=== PATIENT | female | born 1970 | race Caucasian/White ===

== ENCOUNTER 2017-09-02 15:55 | Emergency (ER) | payer SELFPAY ==
[2017-09-02 16:50] LABS: Urine Blood TRACE (NEG); Urine Glucose NEGATIVE (NEG); Urine Protein NEGATIVE (NEG); Urine Specific Gravity 1.015 (1.005-1.030)
[2017-09-02] MEDS ORDERED: DIAZEPAM 5 MG TABLET ONE (16:54)
[2017-09-02] MEDS ORDERED: KETOROLAC 30 MG/ML INJ ONE (16:55)
[2017-09-02] MEDS ORDERED: MORPHINE 4 MG/ML SYR ONE (16:55)
--- NOTE | 2017-09-02 18:11 | ER ---
Nurse's Notes [facility] Name: Nicolle Crenshaw Age: 46 yrs Sex: Female : 1970 Arrival Date: 09/02/2017 Time: 15:58 Bed 18 Private MD: None, None Diagnosis: Sprain of ligaments of lumbar spine Presentation: 09/02 15:58 Presenting complaint: Patient states: hx of back pain; at work, i was lifting bucket of hj ice, my back started hurting, both side of my hips, denies fall and trauma; denies numbness and tingling on legs; reports dizziness; denies nausea and vomiting; pain is 8/10;. Transition of care: patient was not received from another setting of care. Onset of symptoms was September 02, 2017. Risk Assessment: Do you want to hurt yourself or someone else? Patient reports no desire to harm self or others. Initial Sepsis Screen: Does the patient meet any 2 criteria? No. Patient's initial sepsis screen is negative. Does the patient have a suspected source of infection? No. Patient's initial sepsis screen is negative. Care prior to arrival: None. 15:58 Method Of Arrival: Ambulatory 15:58 Acuity: BRENDON 4 hj Triage Assessment: 16:02 General: Appears in no apparent distress. uncomfortable, Behavior is calm, cooperative, hj appropriate for age. Pain: Complains of pain in left lower back and right lower back Pain currently is 8 out of 10 on a pain scale. Musculoskeletal: Circulation, motion, and sensation intact. Capillary refill < 3 seconds. 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 - Social history:: Smoking status: Patient uses tobacco products, smokes one-half pack cigarettes per day, 3-4 days, Patient/guardian denies using alcohol. - Ebola Screening: : Patient negative for fever greater than or equal to 101.5 degrees Fahrenheit, and additional compatible Ebola Virus Disease symptoms Patient denies exposure to infectious person Patient denies travel to an Ebola-affected area in the 21 days before illness onset. Screenin:02 Abuse screen: Denies threats or abuse. Denies injuries from another. Nutritional hj screening: No deficits noted. Tuberculosis screening: No symptoms or risk factors identified. Fall Risk None identified. Assessment: 16:14 General: Appears uncomfortable, Behavior is calm, cooperative. Pain: Complains of pain mg2 in right lower back and left lower back Pain radiates to hip Pain currently is 8 out of 10 on a pain scale. Quality of pain is described as aching, pressure, sharp, Pain began 1 day ago. Is intermittent, Aggravated by increased activity, repositioning, weight bearing. Neuro: Level of Consciousness is awake, alert, obeys commands, Oriented to person, place, time, situation. Cardiovascular: Capillary refill < 3 seconds Patient's skin is warm and dry. Respiratory: Airway is patent Respiratory effort is even, unlabored, Respiratory pattern is regular, symmetrical. GI: No signs and/or symptoms were reported involving the gastrointestinal system. : No signs and/or symptoms were reported regarding the genitourinary system. EENT: No signs and/or symptoms were reported regarding the EENT system. Derm: Skin is intact, Skin is pink, warm \T\ dry. normal. Musculoskeletal: Circulation, motion, and sensation intact. Reports pain in right lower back and left lower back since yesterday. Pain is 8 out of 10 on a pain scale. 17:00 Reassessment: Patient appears in no apparent distress at this time. Patient and/or em family updated on plan of care and expected duration. Pain level reassessed. Patient is alert, oriented x 3, equal unlabored respirations, skin warm/dry/pink. 17:45 Reassessment: Patient appears in no apparent distress at this time. Patient and/or em family updated on plan of care and expected duration. Pain level reassessed. Patient is alert, oriented x 3, equal unlabored respirations, skin warm/dry/pink. rates pain 4/10, pt adamant about it not being a pulled muscle, request to speak with provider, ELVIA Hastings notified Patient states feeling better. 18:00 Reassessment: Patient appears in no apparent distress at this time. ELVIA Hastings at bedside em discussing POC. Vital Signs: 16:02 BP 141 / 79; Pulse 75; Resp 18; Temp 98.8(O); Pulse Ox 100% on R/A; Weight 69.4 kg; hj Height 5 ft. 4 in. (162.56 cm); Pain 8/10; 17:00 BP 133 / 80; Pulse 81; Resp 16; Pulse Ox 99% on R/A; Pain 8/10; em 18:00 BP 141 / 90; Pulse 55; Resp 16; Pulse Ox 100% on R/A; Pain 4/10; em 16:02 Body Mass Index 26.26 (69.40 kg, 162.56 cm) hj ED Course: 15:58 Patient arrived in ED. mr 15:58 None, None is Private Physician. mr 16:01 Triage completed. hj 16:02 Arm band placed on right wrist. hj 16:03 Venkata Roa PA is PHCP. [facility] 16:04 Julio Ramires MD is Attending Physician. [facility] 16:05 Patient has correct armband on for positive identification. Placed in gown. Bed in low hj position. Call light in reach. Side rails up X 1. Adult w/ patient. 16:06 Jeffrey Becker LVN is Primary Nurse. em 16:17 Door closed. Warm blanket given. mg2 18:16 No provider procedures requiring assistance completed. Patient did not have IV access em during this emergency room visit. Administered Medications: 17:01 Drug: Ketorolac 30 mg Route: IM; Site: left deltoid; em 18:08 Follow up: Response: No adverse reaction em 17:01 Drug: morphine 4 mg Route: IM; Site: right deltoid; em 18:08 Follow up: Response: No adverse reaction; Pain is decreased em 17:01 Drug: Valium 5 mg Route: PO; em 18:08 Follow up: Response: No adverse reaction; Pain is decreased em Outcome: 18:10 Discharge ordered by . [facility] 18:16 Discharged to home ambulatory. em 18:16 Condition: good 18:16 Discharge instructions given to patient, Instructed on discharge instructions, follow up and referral plans. medication usage, Demonstrated understanding of instructions, follow-up care, medications, Prescriptions given X 4. 18:35 Patient left the ED. iw Signatures: Venkata Roa PA PA jmm Rivera, Maria mr Becker, Jeffrey, LAPIDARIST LAPIDARIST Yana Dailey, RN RN Kasi Sesay, RN RN Melecio Aguila, AMADEO RN mg2
--- NOTE | 2017-09-02 18:11 | EDPHYS ---
Physician Documentation [facility] Name: Nicolle Crenshaw Age: 46 yrs Sex: Female : 1970 Arrival Date: 09/02/2017 Time: 15:58 Bed 18 Private MD: None, None ED Physician Julio Ramires HPI: 09/02 16:36 This 46 yrs old Female presents to ER via Ambulatory with complaints of Back jmm Pain. 16:36 The patient presents with pain that is acute. The symptoms are located in the low back. jmm Onset: The symptoms/episode began/occurred acutely, today. The pain radiates to the left hip and right hip. This is a 46 year old female with no a history of bugling disc that presents to the ED with lower back pain which radiates to her hips bilaterally. The patient denies fever, urinary retention, fecal incontinence. The patient states symptoms began after lifting a bucket of ice while at work. Patient states taking tylenol, motrin, and lidocaine patch with no relief. . 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 - Social history:: Smoking status: Patient uses tobacco products, smokes one-half pack cigarettes per day, 3-4 days, Patient/guardian denies using alcohol. - Ebola Screening: : Patient negative for fever greater than or equal to 101.5 degrees Fahrenheit, and additional compatible Ebola Virus Disease symptoms Patient denies exposure to infectious person Patient denies travel to an Ebola-affected area in the 21 days before illness onset. ROS: 16:36 Constitutional: Negative for fever, chills, and weight loss, Cardiovascular: Negative jmm for chest pain, palpitations, and edema, Respiratory: Negative for shortness of breath, cough, wheezing, and pleuritic chest pain, Abdomen/GI: Negative for abdominal pain, nausea, vomiting, diarrhea, and constipation. 16:36 Back: Positive for 16:36 Back: Positive for pain at rest, pain with movement. 16:36 All other systems are negative. Exam: 16:36 Head/Face: atraumatic. Cardiovascular: Regular rate and rhythm. No edema appreciated [facility] Respiratory: Normal respirations, no respiratory distress appreciated Abdomen/GI: Non distended, soft 16:36 Constitutional: The patient appears alert, awake, uncomfortable. 16:36 Back: no midline tenderness is appreciated, left lower lumbar paraspinal tenderness on palpation, . 16:36 Neuro: Orientation: is normal, Mentation: is normal, Memory: is normal, extension of the great toes appreciated bilaterally.. 16:36 Psych: Behavior/mood is pleasant, cooperative. Vital Signs: 16:02 BP 141 / 79; Pulse 75; Resp 18; Temp 98.8(O); Pulse Ox 100% on R/A; Weight 69.4 kg; hj Height 5 ft. 4 in. (162.56 cm); Pain 8/10; 17:00 BP 133 / 80; Pulse 81; Resp 16; Pulse Ox 99% on R/A; Pain 8/10; em 18:00 BP 141 / 90; Pulse 55; Resp 16; Pulse Ox 100% on R/A; Pain 4/10; em 16:02 Body Mass Index 26.26 (69.40 kg, 162.56 cm) MDM: 16:33 Patient medically screened. [facility] 18:08 Data reviewed: vital signs, nurses notes, lab test result(s). Counseling: I had a [facility] detailed discussion with the patient and/or guardian regarding: the historical points, exam findings, and any diagnostic results supporting the discharge/admit diagnosis, the need for outpatient follow up, to return to the emergency department if symptoms worsen or persist or if there are any questions or concerns that arise at home. 18:08 ED course: patient's symptoms are mildly relieved with analgesics. I do not currently [facility] suspect cauda equina. José given return precautions. Patient understood and agrees with the plan of care. . 09/02 16:44 Order name: Urine Dipstick--Ancillary (enter results); Complete Time: 17:04 ag 09/02 16:44 Order name: Urine --Ancillary (enter results); Complete Time: 17:04 ag Administered Medications: 17:01 Drug: Ketorolac 30 mg Route: IM; Site: left deltoid; em 18:08 Follow up: Response: No adverse reaction em 17:01 Drug: morphine 4 mg Route: IM; Site: right deltoid; em 18:08 Follow up: Response: No adverse reaction; Pain is decreased em 17:01 Drug: Valium 5 mg Route: PO; em 18:08 Follow up: Response: No adverse reaction; Pain is decreased em Disposition: 09/02/17 18:10 Discharged to Home. Impression: Sprain of ligaments of lumbar spine. - Condition is Stable. - Discharge Instructions: Lumbosacral Strain. - Prescriptions for Ibuprofen 800 mg Oral Tablet - take 1 tablet by ORAL route every 8 hours As needed take with food; 30 tablet. Prednisone 20 mg Oral Tablet - take 3 tablet by ORAL route once daily for 5 days; 15 tablet. Tylenol- Codeine #3 300-30 mg Oral Tablet - take 1 tablet by ORAL route every 6 hours As needed; 12 tablet. orphenadrine citrate 100 mg Oral Tablet Sustained Release - take 1 tablet by ORAL route 2 times per day As needed; 20 tablet. - Medication Reconciliation Form, Thank You Letter, Antibiotic Education, Prescription Opioid Use, Work release form form. - Follow up: Private Physician; When: 2 - 3 days; Reason: Continuance of care. Addendum: 09/04/2017 09:22 Co-signature as Attending Physician, Julio Ramires MD I agree with the assessment and c garcia plan of care. Signatures: Dispatcher [employer] Julio Miranda MD MD cha Mickail, Joel, PA PA [facility] Jeffrey Becker, FEED MILL TENDER FEED MILL TENDER em Yana Amador RN Kasi Junior RN RN hj Corrections: (The following items were deleted from the chart) 09/02 18:35 18:10 09/02/2017 18:10 Discharged to Home. Impression: Sprain of ligaments of lumbar iw spine. Condition is Stable. Forms are Work release form, Medication Reconciliation Form, Thank You Letter, Antibiotic Education, Prescription Opioid Use. Follow up: Private Physician; When: 2 - 3 days; Reason: Continuance of care. julio
[2017-09-02 18:39] VITALS: TEMP 98.8
[2017-09-02 18:42] VITALS: BP 141/90; O2SAT 100
== END 2017-09-02 18:35 | disposition home or self-care (01) ==
LOC: ER 15:55
DX: S33.5XXA Sprain of ligaments of lumbar spine, initial encounter (principal); X50.0XXA Overexertion from strenuous movement or load, initial encounter; Y93.89 Activity, other specified; Y92.89 Other specified places as the place of occurrence of the external cause; Y99.8 Other external cause status; Z88.3 Allergy status to other anti-infective agents; F17.210 Nicotine dependence, cigarettes, uncomplicated; F41.9 Anxiety disorder, unspecified; F32.9 Major depressive disorder, single episode, unspecified
CPT/HCPCS: 81003; 81025; 96372; 99283

== ENCOUNTER 2017-10-14 07:28 | Emergency (ER) | payer SELFPAY ==
[2017-10-14] MEDS ORDERED: NA CHLORIDE 0.9% 1,000 ML ONE (08:02)
[2017-10-14] MEDS ORDERED: LORazepam 2 MG/ML VIAL ONE (08:02)
[2017-10-14 08:32] LABS: Absolute Lymphocytes (CBC) 1.9 K/uL (0.7-4.9); Absolute Monocytes 0.4 K/uL (0.1-1.3); Absolute Neutrophil 6.9 K/uL (1.8-8.0); Basophils % 0.4 % (0-1.3); Eosinophils % 0.7 % (0-4.4); Lymphocytes % 20.2 % (15.3-44.8); MCH 30.7 pg (27.0-35.0); MCV 87.9 fL (80-100); MPV 8.5 fL (7.6-11.3); Monocytes % 4.8 % (3.3-12.3); RBC Red Blood Cell Count 5.11 M/uL (3.86-4.86)
[2017-10-14 08:44] LABS: Potassium 3.7 mmol/L (3.5-5.1)
[2017-10-14 08:49] LABS: Barbiturates NEGATIVE (NEGATIVE); Benzodiazepines NEGATIVE (NEGATIVE); Cocaine NEGATIVE (NEGATIVE); METHAMPHETAM NEGATIVE (NEGATIVE); Methadone NEGATIVE (NEGATIVE); Opiates NEGATIVE (NEGATIVE); Phencyclidine NEGATIVE (NEGATIVE); THC Cannibis NEGATIVE (NEGATIVE)
--- NOTE | 2017-10-14 09:01 | RAD REPORT ---
EXAM DESCRIPTION: CT - Head Brain Wo Cont - 10/14/2017 8:49 am CLINICAL HISTORY: Headache and dizziness COMPARISON: None. TECHNIQUE: Computed axial tomography of the head was obtained. IV contrast was not requested. All CT scans are performed using dose optimization technique as appropriate and may include automated exposure control or mA/KV adjustment according to patient size. FINDINGS: An intracranial bleed is not seen . The ventricles are normal in caliber. No extra-axial fluid collection is noted. Fluid within the sinuses/ mastoids is not seen. IMPRESSION: No acute intracranial abnormality is seen. If patient's symptoms persist MRI of the bra in would be recommended.
--- NOTE | 2017-10-14 09:11 | ER ---
Nurse's Notes [facility] Name: Nicolle Crenshaw Age: 46 yrs Sex: Female : 1970 Arrival Date: 10/14/2017 Time: 07:29 Bed 5 Private MD: out of town, doctor Diagnosis: Hyperventilation Presentation: 10/14 07:32 Presenting complaint: Patient states: "I feel shaky and dizzy like I am going to pass aa5 out". pt also c/o frontal headache. Pt reports symptoms began yesterday. 07:32 Transition of care: patient was not received from another setting of care. Onset of aa5 symptoms was September 2017. Risk Assessment: Do you want to hurt yourself or someone else? Patient reports no desire to harm self or others. Initial Sepsis Screen: Does the patient meet any 2 criteria? No. Patient's initial sepsis screen is negative. Does the patient have a suspected source of infection? No. Patient's initial sepsis screen is negative. Care prior to arrival: None. 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 - Social history:: Smoking status: Patient/guardian denies using tobacco. - Ebola Screening: : No symptoms or risks identified at this time. Screenin:39 Abuse screen: Denies threats or abuse. Denies injuries from another. Nutritional jl7 screening: No deficits noted. Tuberculosis screening: No symptoms or risk factors identified. 08:30 Fall Risk IV access (20 points). Total Villarreal Fall Scale indicates No Risk (0-24 pts). jl7 Assessment: 07:39 General: Appears uncomfortable, Behavior is cooperative, anxious. Pain: Complains of jl7 pain in headache Pain currently is 8 out of 10 on a pain scale. Pain began 1 day ago. Neuro: Level of Consciousness is awake, alert, obeys commands, Oriented to person, place, time, situation, Pupils are PERRLA, Reports dizziness, headache since yesterday. Cardiovascular: Heart tones S1 S2 present Patient's skin is warm and dry. Respiratory: Airway is patent Respiratory effort is even, unlabored, Respiratory pattern is regular, symmetrical, Breath sounds are clear bilaterally. GI: Reports nausea, Patient currently denies diarrhea, vomiting. : No signs and/or symptoms were reported regarding the genitourinary system. EENT: No signs and/or symptoms were reported regarding the EENT system. Derm: Skin is pink, warm \\T\\ dry. Musculoskeletal: No signs and/or symptoms reported regarding the musculoskeletal system. 07:50 Reassessment: Pt's body noted to be shaking all over and pt is crying. Instructed pt to jl7 take deep breaths. Pt verbalized understanding but body continues to shake. 08:05 Reassessment: Pt requesting to use the bathroom, informed pt she will have to use a jl7 bedpan for safety reasons, pt verbalized understanding. Pt's body continues to shake. 08:30 Reassessment: While pt is on bedpan pt's body stops shaking. After bedpan is removed jl7 pt's body continues to appear still. Pt states "I'm shaking on the inside now, just not on the outside.". 09:35 Reassessment: Pt sitting in bed, respirations even and unlabored, no signs of distress jl noted at this time. Dr. Black at bedside discussing plan of care. Vital Signs: 07:39 BP 150 / 117; Pulse 88; Resp 20 S; Temp 98.9(O); Pulse Ox 100% on R/A; Weight 68.04 kg jl7 (R); Height 5 ft. 4 in. (162.56 cm) (R); Pain 8/10; 08:33 BP 124 / 84; Pulse 72; Resp 18; Pulse Ox 100% ; jl7 09:30 BP 127 / 81; Pulse 61; Resp 16; Pulse Ox 100% ; jl7 07:39 Body Mass Index 25.75 (68.04 kg, 162.56 cm) jl7 ED Course: 07:29 Patient arrived in ED. mr 07:29 out of town, doctor is Private Physician. mr 07:32 Arm band placed on Patient placed in an exam room, on a stretcher. aa5 07:33 Jeffries, Jahala, RN is Primary Nurse. jl7 07:33 Ray Black MD is Attending Physician. gs 07:37 Triage completed. aa5 08:27 EKG done, by ED staff, reviewed by Ray Black MD. jb1 08:30 Patient has correct armband on for positive identification. Placed in gown. Bed in low jl7 position. Call light in reach. Side rails up X 1. rn medical surgical on. Pulse ox on. NIBP on. Warm blanket given. 08:30 Initial lab(s) drawn, by me, sent to lab. Urine collected: clean catch specimen, clear. jl7 Inserted saline lock: 22 gauge in right antecubital area, using aseptic technique. Blood collected. 08:49 CT Head Brain wo Cont In Process Unspecified. EDMS 08:49 CT completed. Patient moved to CT via stretcher. Patient moved back from CT. cw1 09:30 No provider procedures requiring assistance completed. IV discontinued, intact, jl7 bleeding controlled, No redness/swelling at site. Pressure dressing applied. Administered Medications: 07:59 Drug: NS 0.9% 1000 ml Route: IV; Rate: 1 bolus; Site: right antecubital; jl7 09:00 Follow up: IV Status: Completed infusion jl7 08:00 Drug: Ativan 1 mg Route: IVP; Site: right antecubital; jl7 08:30 Follow up: Response: No adverse reaction; Marked relief of symptoms jl7 09:47 Not Given (Other Intervention Used): Ativan 1 mg IVP once jl7 Outcome: 09:11 Discharge ordered by . 09:45 Discharged to home ambulatory, with family. jl7 09:45 Condition: stable 09:45 Discharge instructions given to patient, family, Instructed on discharge instructions, follow up and referral plans. Demonstrated understanding of instructions, follow-up care. 09:48 Patient left the ED. jl7 Signatures: Dispatcher [employer] EDMS Dax Woodard jb1 La Padilla Audri, RN RN aa5 Woodley, Crystal cw1 Trent Jeffries RN RN jl7 Ray Black MD MD
--- NOTE | 2017-10-14 09:12 | EDPHYS ---
Physician Documentation [facility] Name: Nicolle Crenshaw Age: 46 yrs Sex: Female : 1970 Arrival Date: 10/14/2017 Time: 07:29 Bed 5 Private MD: out of town, doctor ED Physician Ray Black HPI: 10/14 09:09 This 46 yrs old Female presents to ER via Wheelchair with complaints of gs Shaking. 09:09 The patient presents to the emergency department with breathing fast shaking anxious. gs Onset: The symptoms/episode began/occurred yesterday. Associated signs and symptoms: Pertinent positives; headache, Pertinent negatives: abdominal pain. Severity of symptoms: At their worst the symptoms were severe in the emergency department the symptoms are unchanged. The patient has experienced similar episodes in the past, a few times, headache is new. 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 - Social history:: Smoking status: Patient/guardian denies using tobacco. - Ebola Screening: : No symptoms or risks identified at this time. ROS: 09:09 All other systems are negative. gs Exam: 09:09 Head/Face: Normocephalic, atraumatic. Eyes: Pupils equal round and reactive to light, gs extra-ocular motions intact. Lids and lashes normal. Conjunctiva and sclera are non-icteric and not injected. Cornea within normal limits. Periorbital areas with no swelling, redness, or edema. ENT: Nares patent. No nasal discharge, no septal abnormalities noted. Tympanic membranes are normal and external auditory canals are clear. Oropharynx with no redness, swelling, or masses, exudates, or evidence of obstruction, uvula midline. Mucous membranes moist. Neck: Trachea midline, no thyromegaly or masses palpated, and no cervical lymphadenopathy. Supple, full range of motion without nuchal rigidity, or vertebral point tenderness. No Meningismus. Chest/axilla: Normal chest wall appearance and motion. Nontender with no deformity. No lesions are appreciated. Cardiovascular: Regular rate and rhythm with a normal S1 and S2. No gallops, murmurs, or rubs. Normal PMI, no JVD. No pulse deficits. Respiratory: Lungs have equal breath sounds bilaterally, clear to auscultation and percussion. No rales, rhonchi or wheezes noted. No increased work of breathing, no retractions or nasal flaring. Abdomen/GI: Soft, non-tender, with normal bowel sounds. No distension or tympany. No guarding or rebound. No evidence of tenderness throughout. Back: No spinal tenderness. No costovertebral tenderness. Full range of motion. Skin: Warm, dry with normal turgor. Normal color with no rashes, no lesions, and no evidence of cellulitis. MS/ Extremity: Pulses equal, no cyanosis. Neurovascular intact. Full, normal range of motion. Neuro: Awake and alert, GCS 15, oriented to person, place, time, and situation. Cranial nerves II-XII grossly intact. Motor strength 5/5 in all extremities. Sensory grossly intact. Cerebellar exam normal. Normal gait. 09:09 Constitutional: The patient appears alert, awake, anxious. 09:09 Psych: Behavior/mood is anxious, voluntary shaking can terminate with distraction. 09:13 ECG was reviewed by the Attending Physician. Vital Signs: 07:39 BP 150 / 117; Pulse 88; Resp 20 S; Temp 98.9(O); Pulse Ox 100% on R/A; Weight 68.04 kg 7 (R); Height 5 ft. 4 in. (162.56 cm) (R); Pain 8/10; 08:33 BP 124 / 84; Pulse 72; Resp 18; Pulse Ox 100% ; jl7 09:30 BP 127 / 81; Pulse 61; Resp 16; Pulse Ox 100% ; jl7 07:39 Body Mass Index 25.75 (68.04 kg, 162.56 cm) 7 MDM: 07:43 Patient medically screened. 09:09 Data reviewed: vital signs, nurses notes. Response to treatment: the patient's symptoms gs have resolved after treatment, and as a result, I will discharge patient. 09:12 Differential diagnosis: acute psychotic break, drug withdrawl. ED course: most likely gs cause hypoglycemia is pt states she hasn't been eating well. 10/14 07:44 Order name: CBC with Diff; Complete Time: 09:04 10/14 07:44 Order name: Basic Metabolic Panel; Complete Time: 09:04 10/14 07:44 Order name: Urine Drug Screen; Complete Time: 09:04 10/14 07:44 Order name: CT Head Brain wo Cont; Complete Time: 09:04 10/14 07:44 Order name: CPK; Complete Time: 09:04 10/14 08:30 Order name: Urine Dipstick--Ancillary (enter results) 10/14 09:05 Order name: Diet Regular; Complete Time: 09:05 EC:13 Rate is 89 beats/min. Rhythm is regular. QT interval is normal. T waves are Normal. Clinical impression: Normal ECG. Interpreted by me. Administered Medications: 07:59 Drug: NS 0.9% 1000 ml Route: IV; Rate: 1 bolus; Site: right antecubital; 7 09:00 Follow up: IV Status: Completed infusion jl7 08:00 Drug: Ativan 1 mg Route: IVP; Site: right antecubital; [facility] 08:30 Follow up: Response: No adverse reaction; Marked relief of symptoms jl7 09:47 Not Given (Other Intervention Used): Ativan 1 mg IVP once jl7 Disposition: 10/14/17 09:11 Discharged to Home. Impression: Hyperventilation. - Condition is Stable. - Discharge Instructions: Hyperventilation. - Medication Reconciliation Form, Thank You Letter, Antibiotic Education, Prescription Opioid Use form. - Follow up: Private Physician; When: 2 - 3 days; Reason: Re-evaluation by your physician. Signatures: Dispatcher [employer] [facility] Tona Lucio RN RN aa5 Trent Jeffries RN RN jl7 Ray Black MD MD Corrections: (The following items were deleted from the chart) 09:48 09:11 10/14/2017 09:11 Discharged to Home. Impression: Hyperventilation. Condition is jl7 Stable. Forms are Medication Reconciliation Form, Thank You Letter, Antibiotic Education, Prescription Opioid Use. Follow up: Private Physician; When: 2 - 3 days; Reason: Re-evaluation by your physician.
[2017-10-14 09:58] LABS: Urine Blood NEGATIVE (NEG); Urine Glucose NEGATIVE (NEG); Urine Protein NEGATIVE (NEG)
[2017-10-14 10:00] VITALS: O2SAT 100
[2017-10-14 10:01] VITALS: TEMP 98.9
[2017-10-14 10:02] VITALS: BP 127/81
--- NOTE | 2017-10-16 07:53 | EKG ---
Test Date: 2017-10-14 Test Time: 07:36:57 Manager Of Exhibitions And Collections: JENNI MEASUREMENT RESULTS: Intervals: Rate: 89 MI: 112 QRSD: 64 QT: 346 QTc: 420 [place]: P: 54 MI: 112 QRS: 13 T: 46 INTERPRETIVE STATEMENTS: Normal sinus rhythm Normal ECG Compared to ECG 01/10/2016 19:12:25 No significant changes Electronically Signed On 10-16-17 07:51:40 CDT by Josef Bergman
== END 2017-10-14 09:48 | disposition home or self-care (01) ==
LOC: ER 07:28
DX: R06.4 Hyperventilation (principal); Z88.1 Allergy status to other antibiotic agents; F41.9 Anxiety disorder, unspecified
CPT/HCPCS: 36415; 70450; 80048; 80307; 81003; 82550; 82962; 85025; 93005; 96361; 96374; 99285; J7030

== ENCOUNTER 2018-03-17 12:19 | Emergency (ER) | payer SELFPAY ==
[2018-03-17] MEDS ORDERED: PANTOPRAZOLE 40 MG INJ ONE (13:08)
[2018-03-17 13:49] LABS: Absolute Lymphocytes (CBC) 1.9 K/uL (0.7-4.9); Absolute Monocytes 0.3 K/uL (0.1-1.3); Absolute Neutrophil 2.7 K/uL (1.8-8.0); Basophils % 0.5 % (0-1.3); Eosinophils % 2.1 % (0-4.4); Hematocrit 41.7 % (36.0-45.0); Lymphocytes % 37.6 % (15.3-44.8); MPV 9.2 fL (7.6-11.3); Monocytes % 6.1 % (3.3-12.3); RBC Red Blood Cell Count 4.68 M/uL (3.86-4.86)
[2018-03-17 14:08] LABS: ALT/SGPT 26 U/L (12-78); AST/SGOT 13 U/L (15-37); Albumin 4.2 g/dL (3.4-5.0); Alkaline Phosphatase 49 U/L (45-117); BUN Blood Urea Nitrogen 6 mg/dL (7-18); Bicarbonate 31 mmol/L (21-32); Bilirubin Direct 0.2 mg/dL (0-0.2); Bilirubin Total 0.5 mg/dL (0.2-1.0); Glucose Level 79 mg/dL (74-106); Lipase 125 U/L (73-393); Potassium 3.9 mmol/L (3.5-5.1); Protein, Total 7.5 g/dL (6.4-8.2); Sodium Level 141 mmol/L (136-145); Troponin I < 0.02 ng/mL (0.0-0.045)
--- NOTE | 2018-03-17 14:16 | RAD REPORT ---
EXAM DESCRIPTION: US - Abdomen Exam Limited - 03/17/2018 2:04 pm CLINICAL HISTORY: Abdominal pain. COMPARISON: None. FINDINGS: Several gallstones are present measuring up to 15 millimeters. The gallbladder wall is upp er limits normal thickness The biliary tree is normal caliber. IMPRESSION: Cholelithiasis
[2018-03-17 14:34] LABS: Urine Blood NEGATIVE (NEG); Urine Glucose NEGATIVE (NEG); Urine Protein NEGATIVE (NEG)
--- NOTE | 2018-03-17 14:37 | EDPHYS ---
Physician Documentation [facility] Name: Nicolle Crenshaw Age: 47 yrs Sex: Female : 1970 Arrival Date: 03/17/2018 Time: 12:23 Bed 23 Private MD: None, None ED Physician Julio Ramires HPI: 03/17 13:01 This 47 yrs old Female presents to ER via Ambulatory with complaints of cp Abdominal Pain. 13:01 The patient presents with abdominal pain in the epigastric area. Onset: The cp symptoms/episode began/occurred 1 week(s) ago. The symptoms do not radiate. Associated signs and symptoms: Pertinent positives: nausea, Pertinent negatives: anorexia, blood in stools, constipation, fever, vomiting. The symptoms are described as waxing/waning. Modifying factors: The symptoms are alleviated by food. 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 - Social history:: Smoking status: Patient uses tobacco products, smokes one-half pack cigarettes per day. - Ebola Screening: : No symptoms or risks identified at this time. ROS: 13:05 Constitutional: Negative for body aches, chills, fever, poor PO intake, weight loss. cp 13:05 Eyes: Negative for injury, pain, redness, and discharge. cp 13:05 ENT: Negative for drainage from ear(s), ear pain, sore throat, difficulty swallowing, difficulty handling secretions. 13:05 Cardiovascular: Negative for edema, palpitations. 13:05 Respiratory: Negative for cough, shortness of breath, wheezing. 13:05 Abdomen/GI: Positive for abdominal pain, nausea, of the epigastric area, Negative for vomiting, diarrhea, constipation, anorexia, dysphagia. 13:05 Back: Negative for radiated pain. 13:05 Skin: Negative for cellulitis, rash. 13:05 All other systems are negative. Exam: 13:10 Constitutional: The patient appears in no acute distress, alert, awake, cp non-diaphoretic, non-toxic, well developed, well nourished. 13:10 Head/Face: Normocephalic, atraumatic. cp 13:10 Eyes: Periorbital structures: appear normal, Conjunctiva: normal, no exudate, no injection, Sclera: no appreciated abnormality, Lids and lashes: appear normal, bilaterally. 13:10 ENT: External ear(s): are unremarkable, Nose: is normal, Mouth: Lips: moist, Oral mucosa: pink and intact, moist, Posterior pharynx: is normal, airway is patent, no erythema, no exudate. 13:10 Chest/axilla: Inspection: normal, Palpation: is normal, no crepitus, no tenderness. 13:10 Cardiovascular: Rate: normal, Rhythm: regular. 13:10 Respiratory: the patient does not display signs of respiratory distress, Respirations: normal, no use of accessory muscles, no retractions, no splinting, no tachypnea, labored breathing, is not present, Breath sounds: are clear throughout, no decreased breath sounds, no stridor, no wheezing. 13:10 Abdomen/GI: Inspection: abdomen appears normal, Bowel sounds: active, all quadrants, Palpation: soft, in all quadrants, moderate abdominal tenderness, in the epigastric area, rebound tenderness, is not appreciated, voluntary guarding, is not appreciated, involuntary guarding, is not appreciated. 13:10 Back: pain, is absent, ROM is normal. 13:10 Skin: cellulitis, is not appreciated, no rash present. 14:24 ECG was reviewed by the Attending Physician. Vital Signs: 12:28 BP 126 / 51; Pulse 64; Resp 18; Temp 97.8; Pulse Ox 98% on R/A; Weight 72.57 kg; Height la1 5 ft. 4 in. (162.56 cm); 15:06 BP 122 / 60; Pulse 66; Resp 18; Pulse Ox 100% on R/A; Pain 0/10; mg2 12:28 Body Mass Index 27.46 (72.57 kg, 162.56 cm) la1 MDM: 12:33 Patient medically screened. [facility] 14:27 Data reviewed: vital signs, nurses notes, lab test result(s), EKG, radiologic studies, cp ultrasound, and as a result, I will discharge patient. 03/17 12:55 Order name: Basic Metabolic Panel 03/17 12:55 Order name: CBC with Diff 03/17 12:55 Order name: Creatinine for Radiology 03/17 12:55 Order name: Hepatic Function 03/17 12:55 Order name: Lipase 03/17 12:55 Order name: Troponin I 03/17 13:03 Order name: Urine Dipstick--Ancillary (enter results) 03/17 13:03 Order name: Urine --Ancillary (enter results) 03/17 13:51 Order name: CBC with Automated Diff; Complete Time: 14:09 EDNV 03/17 14:09 Interpretation: Reviewed. 03/17 14:00 Order name: Creatinine (Radiology Only); Complete Time: 14:09 EDNV 03/17 14:08 Order name: Basic Metabolic Panel; Complete Time: 14:09 EDNV 03/17 14:09 Interpretation: Normal except: BUN 6; GFR 81. 03/17 14:08 Order name: Liver (Hepatic) Function; Complete Time: 14:09 EDNV 03/17 14:09 Interpretation: Normal except: AST 13. 03/17 14:08 Order name: Troponin I; Complete Time: 14:09 EDNV 03/17 14:10 Interpretation: Reviewed. 03/17 14:08 Order name: Lipase; Complete Time: 14:09 EDNV 03/17 14:09 Interpretation: Reviewed. 03/17 12:55 Order name: IV Saline Lock; Complete Time: 15:06 03/17 12:55 Order name: Labs collected and sent; Complete Time: 15:06 03/17 12:55 Order name: Urine Dipstick-Ancillary (obtain specimen); Complete Time: 12:58 03/17 12:55 Order name: Urine Test (obtain specimen); Complete Time: 12:58 03/17 12:55 Order name: EKG; Complete Time: 12:55 03/17 12:55 Order name: EKG - Nurse/Tech; Complete Time: 15:06 03/17 12:55 Order name: US Abdomen Limited 03/17 12:55 Order name: XRAY Chest (1 view) 03/17 12:55 Order name: NPO; Complete Time: 12:55 03/17 14:17 Order name: US; Complete Time: 14:20 EDNV 03/17 14:21 Interpretation: Report reviewed. cp 03/17 14:35 Order name: Urine --Ancillary EDMS 03/17 14:35 Order name: Urine Dipstick-Ancillary EDMS 03/17 15:01 Order name: [employer] EDNV EC:24 Rate is 55 beats/min. Rhythm is regular. [place] interval is normal. QRS interval is normal. cp QT interval is normal. Interpreted by me. Reviewed by me. Administered Medications: 13:18 Drug: ProTONIX 40 mg Route: IVP; Infused Over: 2 mins; Site: right antecubital; tl3 15:05 Follow up: Response: No adverse reaction; Marked relief of symptoms mg2 Disposition: 03/17/18 14:36 Discharged to Home. Impression: Cholelithiasis. - Condition is Stable. - Discharge Instructions: Biliary Colic, Adult, Cholelithiasis. - Prescriptions for Bentyl 20 mg Oral Tablet - take 2 tablet by ORAL route every 6 hours As needed; 40 tablet. Zofran 4 mg Oral Tablet - take 1 tablet by ORAL route every 12 hours As needed; 20 tablet. - Medication Reconciliation Form, Thank You Letter, Antibiotic Education, Prescription Opioid Use form. - Follow up: Mariano Stephen MD; When: 1 - 2 days; Reason: Recheck today's complaints. - Problem is new. - Symptoms have improved. Addendum: 03/19/2018 07:47 Co-signature as Attending Physician, uJlio Ramires MD I agree with the assessment and c garcia plan of care. Signatures: Dispatcher [employer] [facility] Julio Ramires MD MD cha Attema, Lee RN RN la1 Julio Delgadillo PA PA cp Adelita Rob, RN RN tl3 Melecio Aguila RN RN mg2 Corrections: (The following items were deleted from the chart) 03/17 13:02 13:01 Constitutional: Negative for cp cp 15:08 14:36 03/17/2018 14:36 Discharged to Home. Impression: Cholelithiasis. Condition is mg2 Stable. Forms are Medication Reconciliation Form, Thank You Letter, Antibiotic Education, Prescription Opioid Use. Follow up: Mariano Stpehen; When: 1 - 2 days; Reason: Recheck today's complaints. Problem is new. Symptoms have improved. cp
--- NOTE | 2018-03-17 14:37 | ER ---
Nurse's Notes [facility] Name: Nicolle Crenshaw Age: 47 yrs Sex: Female : 1970 Arrival Date: 03/17/2018 Time: 12:23 Bed 23 Private MD: None, None Diagnosis: Cholelithiasis Presentation: 03/17 12:27 Presenting complaint: Patient states: Upper abdominal pain for about a week, persistent la1 nausea. Transition of care: patient was not received from another setting of care. Onset of symptoms was March 17, 2018. Risk Assessment: Do you want to hurt yourself or someone else? Patient reports no desire to harm self or others. Initial Sepsis Screen: Does the patient meet any 2 criteria? No. Patient's initial sepsis screen is negative. Does the patient have a suspected source of infection? No. Patient's initial sepsis screen is negative. Care prior to arrival: None. 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 - Social history:: Smoking status: Patient uses tobacco products, smokes one-half pack cigarettes per day. - Ebola Screening: : No symptoms or risks identified at this time. Screenin:15 Abuse screen: Denies threats or abuse. Nutritional screening: No deficits noted. tl3 Tuberculosis screening: No symptoms or risk factors identified. Fall Risk None identified. Assessment: 13:15 General: Appears uncomfortable, slender, well groomed, well developed, well nourished, tl3 Behavior is cooperative, appropriate for age, anxious. Pain: Complains of pain in epigastric area, right upper quadrant and left upper quadrant. Neuro: Level of Consciousness is awake, alert, obeys commands, Oriented to person, place, time, situation, Appropriate for age. Cardiovascular: Patient's skin is warm and dry. Respiratory: Airway is patent Respiratory effort is even, unlabored, Respiratory pattern is regular, symmetrical. GI: Abdomen is round Bowel sounds present X 4 quads. Abd is soft Abdomen is tender to palpation in epigastric area, right upper quadrant and left upper quadrant abdominal pain that has lasted for about a week, gets somewhat better after eating, states that she has been nauseated but no vomiting, normal BM Reports. : No signs and/or symptoms were reported regarding the genitourinary system. EENT: No signs and/or symptoms were reported regarding the EENT system. Derm: No signs and/or symptoms reported regarding the dermatologic system. Vital Signs: 12:28 BP 126 / 51; Pulse 64; Resp 18; Temp 97.8; Pulse Ox 98% on R/A; Weight 72.57 kg; Height la1 5 ft. 4 in. (162.56 cm); 15:06 BP 122 / 60; Pulse 66; Resp 18; Pulse Ox 100% on R/A; Pain 0/10; mg2 12:28 Body Mass Index 27.46 (72.57 kg, 162.56 cm) la1 ED Course: 12:23 Patient arrived in ED. mr 12:23 None, None is Private Physician. mr 12:28 Triage completed. la1 12:29 Arm band placed on left wrist. la1 12:33 Julio Delgadillo PA is PHCP. cp 12:33 Julio Ramires MD is Attending Physician. cp 12:35 Urine collected: clean catch specimen, clear, rosario colored, Amount Voided: 80mL. jp3 12:40 Bed in low position. Call light in reach. Side rails up X 1. Warm blanket given. Pillow jp3 given. 12:40 Pulse ox on. NIBP on. jp3 12:54 Adelita Rob, RN is Primary Nurse. tl3 13:15 No provider procedures requiring assistance completed. Initial lab(s) drawn, by me, tl3 sent to lab. ultrasound done at bedside. Inserted saline lock: 20 gauge in right antecubital area, using aseptic technique. Blood collected. 13:26 Ultrasound completed. Patient tolerated well. sg3 13:26 Notified ED Physician kristian. sg3 14:27 X-ray(s) taken. tl3 14:35 Mariano Stephen MD is Referral Physician. cp 14:55 IV discontinued, intact, bleeding controlled, No redness/swelling at site. Pressure jp3 dressing applied. Administered Medications: 13:18 Drug: ProTONIX 40 mg Route: IVP; Infused Over: 2 mins; Site: right antecubital; tl3 15:05 Follow up: Response: No adverse reaction; Marked relief of symptoms mg2 Outcome: 14:36 Discharge ordered by . albina 15:07 Discharged to home ambulatory. mg2 15:07 Condition: stable 15:07 Discharge instructions given to patient, Instructed on discharge instructions, follow up and referral plans. medication usage, Demonstrated understanding of instructions, follow-up care, medications, Prescriptions given X 2. 15:08 Patient left the ED. mg2 Signatures: Connie Padilla Lee, RN RN la1 Julio Delgadillo PA PA cp Godinez, Sarah 3 Adelita Rob, AMADEO RN tl3 Melecio Aguila RN RN mg2 Ward Prabhakar jp3
--- NOTE | 2018-03-17 15:00 | RAD REPORT ---
EXAM DESCRIPTION: Emma Single View03/17/2018 2:48 pm CLINICAL HISTORY: abd pain COMPARISON: 2016 FINDINGS: The lungs appear clear of acute infiltrate. The heart is normal size IMPRESSION: No acute abnormalities displayed
[2018-03-17 16:02] VITALS: TEMP 97.8
[2018-03-17 16:05] VITALS: BP 122/60; O2SAT 100
--- NOTE | 2018-03-18 11:24 | EKG ---
Test Date: 2018-03-17 Test Time: 14:18:57 Broaching Machine Repairer: VERONICA MEASUREMENT RESULTS: Intervals: Rate: 55 WV: 158 QRSD: 66 QT: 424 QTc: 405 [place]: P: 75 WV: 158 QRS: 16 T: 37 INTERPRETIVE STATEMENTS: Sinus bradycardia Possible Left atrial enlargement Borderline ECG Compared to ECG 10/14/2017 07:36:57 Sinus rhythm no longer present Electronically Signed On 03-18-18 11:23:39 SUPERVISOR MENDING by Eduardo Ruelas
== END 2018-03-17 15:08 | disposition home or self-care (01) ==
LOC: ER 12:19
DX: K80.20 Calculus of gallbladder without cholecystitis without obstruction (principal); Z88.3 Allergy status to other anti-infective agents; F41.8 Other specified anxiety disorders; F43.10 Post-traumatic stress disorder, unspecified; Z72.0 Tobacco use; F17.210 Nicotine dependence, cigarettes, uncomplicated
CPT/HCPCS: 36415; 71045; 76705; 80048; 80076; 81003; 81025; 83690; 84484; 85025; 93005; C9113

== ENCOUNTER 2018-04-07 12:58 | Emergency (ER) | payer SELFPAY ==
--- OUTSIDE RECORDS SUMMARY | 2018-04-07 13:01 | XMS REPORT ---
:1970 [facility] [address] [place] [address] [address] [place] [address] Care Team Providers Name Role Phone Unavailable Unavailable Unavailable Problems This patient has no known problems. Allergies, Adverse Reactions, Alerts This patient has no known allergies or adverse reactions. Medications This patient has no known medications.
[2018-04-07] MEDS ORDERED: ONDANSETRON 4 MG/2 ML VIAL ONE (13:53)
[2018-04-07] MEDS ORDERED: KETOROLAC 30 MG/ML INJ ONE (13:53)
[2018-04-07 14:13] LABS: Absolute Lymphocytes (CBC) 1.8 K/uL (0.7-4.9); Absolute Monocytes 0.4 K/uL (0.1-1.3); Absolute Neutrophil 4.3 K/uL (1.8-8.0); Basophils % 0.7 % (0-1.3); Eosinophils % 2.4 % (0-4.4); Lymphocytes % 27.1 % (15.3-44.8); MPV 9.3 fL (7.6-11.3); Monocytes % 5.4 % (3.3-12.3); RBC Red Blood Cell Count 4.87 M/uL (3.86-4.86)
[2018-04-07 14:14] LABS: Albumin 4.4 g/dL (3.4-5.0); Bilirubin Direct 0.1 mg/dL (0-0.2); Bilirubin Total 0.6 mg/dL (0.2-1.0); Potassium 3.7 mmol/L (3.5-5.1); Protein, Total 7.5 g/dL (6.4-8.2)
[2018-04-07 14:24] LABS: Urine Blood TRACE (NEG); Urine Glucose NEGATIVE (NEG); Urine Protein NEGATIVE (NEG); Urine pH 6.5 (5.0-7.0)
--- NOTE | 2018-04-07 15:19 | EDPHYS ---
Physician Documentation [facility] Name: Nicolle Crenshaw Age: 47 yrs Sex: Female : 1970 Arrival Date: 04/07/2018 Time: 13:00 Bed 26 Private MD: None, None; out of town, doctor ED Physician Marcus Lobo HPI: 04/07 14:00 This 47 yrs old Female presents to ER via Wheelchair with complaints of Back pm1 Pain. 14:00 The patient presents with pain that is acute. The symptoms are located in the low back. pm1 Onset: The symptoms/episode began/occurred yesterday. The pain radiates to the left leg. Associated signs and symptoms: Pertinent negatives: fever, numbness, tingling. The problem was sustained when lifting furniture. Modifying factors: The patient symptoms are alleviated by remaining still, the patient symptoms are aggravated by movement. Severity of symptoms: in the emergency department the symptoms are actually worse. The patient has experienced similar episodes in the past, several times. The patient has not recently seen a physician. Patient was lifting and moving heavy furniture yesterday. Reports history of herniated discs. Patient presenting to ER for her acute back pain but reports that she also has some upper abdominal pain today that was evaluated on 03/27/18 and she was diagnosed with cholelithiasis. Historical: - Allergies: 13:05 Levofloxacin; la1 - PMHx: 13:05 Anxiety; Back pain; Depression; PTSD; la1 - PSHx: 13:05 ; la1 - Immunization history:: Adult Immunizations up to date. - Social history:: Smoking status: Patient uses tobacco products, smokes one-half pack cigarettes per day. - Ebola Screening: : No symptoms or risks identified at this time. ROS: 14:00 Constitutional: Negative for fever, chills, and weight loss, Eyes: Negative for injury, pm1 pain, redness, and discharge, ENT: Negative for injury, pain, and discharge, Neck: Negative for injury, pain, and swelling, Cardiovascular: Negative for chest pain, palpitations, and edema, Respiratory: Negative for shortness of breath, cough, wheezing, and pleuritic chest pain. 14:00 : Negative for injury, bleeding, discharge, and swelling, MS/Extremity: Negative for injury and deformity, Skin: Negative for injury, rash, and discoloration, Neuro: Negative for headache, weakness, numbness, tingling, and seizure. 14:00 Abdomen/GI: Positive for abdominal pain, nausea, of the right upper quadrant and left upper quadrant, Negative for vomiting, diarrhea, constipation. 14:00 Back: Positive for of the low back area, pain. Exam: 14:00 Constitutional: This is a well developed, well nourished patient who is awake, alert, pm1 and in no acute distress. Head/Face: Normocephalic, atraumatic. Eyes: Pupils equal round and reactive to light, extra-ocular motions intact. Lids and lashes normal. Conjunctiva and sclera are non-icteric and not injected. Cornea within normal limits. Periorbital areas with no swelling, redness, or edema. ENT: Nares patent. No nasal discharge, no septal abnormalities noted. Tympanic membranes are normal and external auditory canals are clear. Oropharynx with no redness, swelling, or masses, exudates, or evidence of obstruction, uvula midline. Mucous membranes moist. Neck: Trachea midline, no thyromegaly or masses palpated, and no cervical lymphadenopathy. Supple, full range of motion without nuchal rigidity, or vertebral point tenderness. No Meningismus. Chest/axilla: Normal chest wall appearance and motion. Nontender with no deformity. No lesions are appreciated. Cardiovascular: Regular rate and rhythm with a normal S1 and S2. No gallops, murmurs, or rubs. Normal PMI, no JVD. No pulse deficits. Respiratory: Lungs have equal breath sounds bilaterally, clear to auscultation and percussion. No rales, rhonchi or wheezes noted. No increased work of breathing, no retractions or nasal flaring. Abdomen/GI: Soft, non-tender, with normal bowel sounds. No distension or tympany. No guarding or rebound. No evidence of tenderness throughout. 14:00 Skin: Warm, dry with normal turgor. Normal color with no rashes, no lesions, and no evidence of cellulitis. MS/ Extremity: Pulses equal, no cyanosis. Neurovascular intact. Full, normal range of motion. 14:00 Back: normal spinal alignment noted, vertebral tenderness, is not appreciated, muscle spasm, is appreciated in the left low back. 14:00 Neuro: Orientation: is normal, Mentation: is normal, Motor: is normal, moves all fours, Gait: is steady, at a normal pace, without difficulty. Vital Signs: 13:08 BP 121 / 86; Pulse 68; Resp 18; Temp 98.5; Pulse Ox 98% on R/A; Weight 72.57 kg; Height la1 5 ft. 4 in. (162.56 cm); 14:15 BP 119 / 74; Pulse 62; Resp 18; Pulse Ox 100% on R/A; aj1 15:53 BP 104 / 87; Pulse 65; Resp 16; Pulse Ox 100% on R/A; aj1 16:32 BP 123 / 81; Pulse 50; Resp 16; Pulse Ox 100% on R/A; aj1 13:08 Body Mass Index 27.46 (72.57 kg, 162.56 cm) la1 MDM: 13:13 Patient medically screened. pm1 14:51 Data reviewed: vital signs. Data interpreted: Pulse oximetry: on room air is 100 %. pm1 Interpretation: normal. 15:16 ED course: Patient reports abdominal pain resolved with Toradol and nausea resolved pm1 with Zofran. She would like something for her lower back pain. Will give patient morphine for improved pain control and discharge to home with tramadol. 15:16 Counseling: I had a detailed discussion with the patient and/or guardian regarding: the pm1 historical points, exam findings, and any diagnostic results supporting the discharge/admit diagnosis, lab results, the need for outpatient follow up, to return to the emergency department if symptoms worsen or persist or if there are any questions or concerns that arise at home. 04/07 13:23 Order name: Basic Metabolic Panel; Complete Time: 14:34 pm1 04/07 13:23 Order name: CBC with Diff; Complete Time: 14:34 pm1 04/07 13:23 Order name: Hepatic Function; Complete Time: 14:34 pm1 04/07 13:23 Order name: Lipase; Complete Time: 14:34 pm1 04/07 14:17 Order name: Urine Dipstick--Ancillary (enter results); Complete Time: 14:34 eb 04/07 14:17 Order name: Urine --Ancillary (enter results); Complete Time: 14:34 eb 04/07 13:23 Order name: IV Saline Lock; Complete Time: 14:09 pm1 04/07 13:23 Order name: Labs collected and sent; Complete Time: 14:09 pm1 Administered Medications: 14:09 Drug: Zofran 4 mg Route: IVP; Site: left antecubital; aj1 15:37 Follow up: Response: No adverse reaction aj1 14:09 Drug: TORadol 30 mg Route: IVP; Site: left antecubital; aj1 15:37 Follow up: Response: No adverse reaction aj1 15:25 Drug: morphine 4 mg Route: IVP; Site: left forearm; aj1 16:34 Follow up: Response: No adverse reaction aj1 Disposition: 17:26 Co-signature as Attending Physician, Marcus Lobo MD. Chart complete. rn Disposition: 04/07/18 15:18 Discharged to Home. Impression: Lumbago with sciatica, left side, Unspecified abdominal pain - .. - Condition is Stable. - Discharge Instructions: Abdominal Pain, Adult, Back Pain, Adult, Sciatica. - Prescriptions for Tramadol 50 mg Oral Tablet - take 1 tablet by ORAL route every 8 hours as needed; 12 tablet. - Medication Reconciliation Form, Thank You Letter, Prescription Opioid Use form. - Follow up: Emergency Department; When: As needed; Reason: Worsening of condition. Follow up: Private Physician; When: 2 - 3 days; Reason: Recheck today's complaints, Continuance of care, Re-evaluation by your physician. - Problem is new. - Symptoms have improved. Signatures: Dispatcher [employer] EDMS Alayna Perales RN RN aj1 Marcus Lobo MD MD rn Attema, Lee, RN RN la1 Ghulam Yeager, KAYLEIGH BROOM WORKER pm1 Corrections: (The following items were deleted from the chart) 15:21 15:18 04/07/2018 15:18 Discharged to Home. Impression: Lumbago with sciatica, left pm1 side. Condition is Stable. Forms are Medication Reconciliation Form, Thank You Letter, Antibiotic Education, Prescription Opioid Use. Follow up: Emergency Department; When: As needed; Reason: Worsening of condition. Follow up: Private Physician; When: 2 - 3 days; Reason: Recheck today's complaints, Continuance of care, Re-evaluation by your physician. Problem is new. Symptoms have improved. pm1 16:34 15:21 04/07/2018 15:18 Discharged to Home. Impression: Lumbago with sciatica, left aj1 side; Unspecified abdominal pain - .. Condition is Stable. Discharge Instructions: Back Pain, Adult, Sciatica, Abdominal Pain, Adult. Prescriptions for Tramadol 50 mg Oral Tablet - take 1 tablet by ORAL route every 8 hours as needed; 12 tablet. and Forms are Medication Reconciliation Form, Thank You Letter, Antibiotic Education, Prescription Opioid Use. Follow up: Emergency Department; When: As needed; Reason: Worsening of condition. Follow up: Private Physician; When: 2 - 3 days; Reason: Recheck today's complaints, Continuance of care, Re-evaluation by your physician. Problem is new. Symptoms have improved. pm1
--- NOTE | 2018-04-07 15:19 | ER ---
Nurse's Notes [facility] Name: Nicolle Crenshaw Age: 47 yrs Sex: Female : 1970 Arrival Date: 04/07/2018 Time: 13:00 Bed 26 Private MD: None, None; out of town, doctor Diagnosis: Lumbago with sciatica, left side;Unspecified abdominal pain-. Presentation: 04/07 13:05 Presenting complaint: Patient states: I moved a dresser yesterday and I already have 2 la1 bulging disks in my back and I think I made something worse. I am taking T3 and it's just not helping. Transition of care: patient was not received from another setting of care. Onset of symptoms was April 07, 2018. Risk Assessment: Do you want to hurt yourself or someone else? Patient reports no desire to harm self or others. Initial Sepsis Screen: Does the patient meet any 2 criteria? No. Patient's initial sepsis screen is negative. Does the patient have a suspected source of infection? No. Patient's initial sepsis screen is negative. Care prior to arrival: None. 13:05 Method Of Arrival: Wheelchair la1 13:05 Acuity: BRENDON 3 aj1 Historical: - Allergies: 13:05 Levofloxacin; la1 - PMHx: 13:05 Anxiety; Back pain; Depression; PTSD; la1 - PSHx: 13:05 ; la1 - Immunization history:: Adult Immunizations up to date. - Social history:: Smoking status: Patient uses tobacco products, smokes one-half pack cigarettes per day. - Ebola Screening: : No symptoms or risks identified at this time. Screenin:15 Abuse screen: Denies threats or abuse. Denies injuries from another. Nutritional aj1 screening: No deficits noted. Tuberculosis screening: No symptoms or risk factors identified. 15:54 Fall Risk None identified. aj1 Assessment: 13:15 General: Appears in no apparent distress. uncomfortable, Behavior is calm, cooperative, aj1 appropriate for age. Pain: Complains of pain in back and abdomen Pain currently is 9 out of 10 on a pain scale. Neuro: Level of Consciousness is awake, alert, obeys commands. Cardiovascular: Patient's skin is warm and dry. Respiratory: Airway is patent Respiratory effort is even, unlabored, Respiratory pattern is regular, symmetrical. GI: Abdomen is flat, non-distended, Reports upper abdominal pain. : No signs and/or symptoms were reported regarding the genitourinary system. EENT: No signs and/or symptoms were reported regarding the EENT system. Derm: No signs and/or symptoms reported regarding the dermatologic system. Skin is pink, warm \T\ dry. normal. Musculoskeletal: No signs and/or symptoms reported regarding the musculoskeletal system. Circulation, motion, and sensation intact. Range of motion: intact in all extremities. 14:15 Reassessment: Patient appears in no apparent distress at this time. No changes from aj1 previously documented assessment. Patient and/or family updated on plan of care and expected duration. Pain level reassessed. Patient is alert, oriented x 3, equal unlabored respirations, skin warm/dry/pink. 15:15 Reassessment: Patient states that the morphine has not helped her pain at all. Notified ajAlan Yeager NP. Order received. 15:45 Reassessment: Patient states that the morphine has made her stomach start to cramp. aj1 Notified Mariela Yeager NP. 15:52 Reassessment: Mariela Yeager NP at bedside. aj1 16:00 Reassessment: Awaiting provider to print discharge Rx to discharge patient. aj1 Vital Signs: 13:08 BP 121 / 86; Pulse 68; Resp 18; Temp 98.5; Pulse Ox 98% on R/A; Weight 72.57 kg; Height la1 5 ft. 4 in. (162.56 cm); 14:15 BP 119 / 74; Pulse 62; Resp 18; Pulse Ox 100% on R/A; aj1 15:53 BP 104 / 87; Pulse 65; Resp 16; Pulse Ox 100% on R/A; aj1 16:32 BP 123 / 81; Pulse 50; Resp 16; Pulse Ox 100% on R/A; aj1 13:08 Body Mass Index 27.46 (72.57 kg, 162.56 cm) la1 ED Course: 13:00 Patient arrived in ED. sb2 13:00 out of town, doctor is Private Physician. sb2 13:00 None, None is Private Physician. sb2 13:06 Triage completed. la1 13:07 Arm band placed on left wrist. la1 13:09 Ghulam Yeager NP is PHCP. pm1 13:09 Marcus Lobo MD is Attending Physician. pm1 13:12 Alayna Perales, RN is Primary Nurse. aj1 13:15 Patient has correct armband on for positive identification. Bed in low position. Call aj1 light in reach. Side rails up X 1. 13:15 No provider procedures requiring assistance completed. aj1 13:53 Missed attempt(s): 22 gauge in right antecubital area. lt1 13:54 Initial lab(s) drawn, by me, sent to lab. lt1 14:15 Inserted saline lock: 20 gauge in left forearm, using aseptic technique. aj1 16:32 IV discontinued, intact, bleeding controlled, No redness/swelling at site. Pressure aj1 dressing applied. Administered Medications: 14:09 Drug: Zofran 4 mg Route: IVP; Site: left antecubital; aj1 15:37 Follow up: Response: No adverse reaction aj1 14:09 Drug: TORadol 30 mg Route: IVP; Site: left antecubital; aj1 15:37 Follow up: Response: No adverse reaction aj1 15:25 Drug: morphine 4 mg Route: IVP; Site: left forearm; aj1 16:34 Follow up: Response: No adverse reaction aj1 Outcome: 15:18 Discharge ordered by MD. pm1 16:33 Discharged to home ambulatory. aj1 16:33 Condition: good 16:33 Discharge instructions given to patient, Instructed on discharge instructions, follow up and referral plans. medication usage, Demonstrated understanding of instructions, follow-up care, medications, Prescriptions given X 1. 16:34 Patient left the ED. aj1 Signatures: Alayna Perales RN RN aj1 Bruce Francisco RN RN la1 Ghulam Yeager NP WAGE ANALYST pm1 Priti Lopez sb2 Siobhan Burrell lt1 Corrections: (The following items were deleted from the chart) 13:20 13:05 Acuity: BRENDON 4 la1 aj1 14:28 14:25 General: Appears in no apparent distress. uncomfortable, Behavior is calm, aj1 cooperative, appropriate for age, aj1 14:28 14:25 Pain: Complains of pain in back and abdomen Pain currently is 9 out of 10 on a aj1 pain scale. aj1 14:28 14:25 Neuro: Level of Consciousness is awake, alert, obeys commands, aj1 aj1 : Cardiovascular: Patient's skin is warm and dry. aj1 aj1 : Respiratory: Airway is patent Respiratory effort is even, unlabored, Respiratory aj1 pattern is regular, symmetrical, aj1 : GI: Abdomen is flat, non-distended, Reports upper abdominal pain, aj1 aj1 : : No signs and/or symptoms were reported regarding the genitourinary system. aj1aj1 : EENT: No signs and/or symptoms were reported regarding the EENT system. aj1 aj1 : Derm: No signs and/or symptoms reported regarding the dermatologic system. Skin aj1 is pink, warm \T\ dry. normal, aj1 : Musculoskeletal: No signs and/or symptoms reported regarding the musculoskeletal aj1 system. Circulation, motion, and sensation intact. Range of motion: intact in all extremities, aj1
[2018-04-07] MEDS ORDERED: MORPHINE 4 MG/ML SYR ONE (15:38)
[2018-04-07 16:42] VITALS: TEMP 98.5
[2018-04-07 16:43] VITALS: O2SAT 100
[2018-04-07 16:45] VITALS: BP 123/81
== END 2018-04-07 16:34 | disposition home or self-care (01) ==
LOC: ER 12:58
DX: M54.42 Lumbago with sciatica, left side (principal); R10.9 Unspecified abdominal pain
CPT/HCPCS: 36415; 80048; 80076; 81003; 81025; 83690; 85025; 99284; J2405

== ENCOUNTER 2018-09-15 15:09 | Emergency (ER) | payer SELFPAY ==
--- OUTSIDE RECORDS SUMMARY | 2018-09-15 15:12 | XMS REPORT ---
:1970 [facility] Address [address] [place] [address] [address] [place] [address] Care Team Providers Name Role Phone Unavailable Unavailable Unavailable Problems This patient has no known problems. Allergies, Adverse Reactions, Alerts This patient has no known allergies or adverse reactions. Medications This patient has no known medications.
[2018-09-15] MEDS ORDERED: HYDROCODONE/APAP 10/325 TAB ONE (16:04)
[2018-09-15] MEDS ORDERED: KETOROLAC 30 MG/ML INJ ONE (16:05)
--- NOTE | 2018-09-15 16:06 | EDPHYS ---
Physician Documentation [facility] Name: Nicolle Crenshaw Age: 47 yrs Sex: Female : 1970 Arrival Date: 09/15/2018 Time: 15:11 Bed 8 Private MD: ED Physician Ray Black HPI: 09/15 16:20 This 47 yrs old Female presents to ER via Wheelchair with complaints of Back kb Pain. 16:20 The patient presents with pain that is acute. The symptoms are located in the low back. kb Onset: The symptoms/episode began/occurred this morning. The pain does not radiate. Associated signs and symptoms: The patient has no apparent associated signs or symptoms. The problem was sustained when lifting heavy object. Modifying factors: The patient symptoms are alleviated by nothing, the patient symptoms are aggravated by any movement. Severity of symptoms: At their worst the symptoms were moderate, in the emergency department the symptoms are unchanged. The patient has experienced similar episodes in the past, a few times. The patient has not recently seen a physician. Pt reports she was lifting something heavy at work at 0600 this morning and twisted. c/o pain since then. States she finished her shift before coming using a brace and heating pad, as well as taking Tylenol #3. Ambulates to and from bathroom. . 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 - Social history:: Smoking status: Patient uses tobacco products, smokes one-half pack cigarettes per day. - Ebola Screening: : Patient denies travel to an Ebola-affected area in the 21 days before illness onset. ROS: 16:19 Constitutional: Negative for fever, chills, and weight loss, Cardiovascular: Negative kb for chest pain, palpitations, and edema, Respiratory: Negative for shortness of breath, cough, wheezing, and pleuritic chest pain, Abdomen/GI: Negative for abdominal pain, nausea, vomiting, diarrhea, and constipation, : Negative for injury, bleeding, discharge, and swelling, MS/Extremity: Negative for injury and deformity, Skin: Negative for injury, rash, and discoloration, Neuro: Negative for headache, weakness, numbness, tingling, and seizure. 16:19 Back: Positive for pain at rest, pain with movement, of the low back area. Exam: 16:19 Constitutional: This is a well developed, well nourished patient who is awake, alert, kb and in no acute distress. Head/Face: Normocephalic, atraumatic. Chest/axilla: Normal chest wall appearance and motion. Nontender with no deformity. No lesions are appreciated. Cardiovascular: Regular rate and rhythm with a normal S1 and S2. No gallops, murmurs, or rubs. Normal PMI, no JVD. No pulse deficits. Respiratory: Lungs have equal breath sounds bilaterally, clear to auscultation and percussion. No rales, rhonchi or wheezes noted. No increased work of breathing, no retractions or nasal flaring. Abdomen/GI: Soft, non-tender, with normal bowel sounds. No distension or tympany. No guarding or rebound. No evidence of tenderness throughout. Skin: Warm, dry with normal turgor. Normal color with no rashes, no lesions, and no evidence of cellulitis. MS/ Extremity: Pulses equal, no cyanosis. Neurovascular intact. Full, normal range of motion. Neuro: Awake and alert, GCS 15, oriented to person, place, time, and situation. Cranial nerves II-XII grossly intact. Motor strength 5/5 in all extremities. Sensory grossly intact. Cerebellar exam normal. Normal gait. 16:19 Back: pain, that is moderate, of the low back area, ROM is painful, with all movement, vertebral tenderness, is not appreciated. Vital Signs: 15:24 BP 154 / 69; Pulse 74; Resp 18; Temp 98.1; Pulse Ox 100% on R/A; Weight 72.57 kg (R); aj1 Height 5 ft. 4 in. (162.56 cm) (R); Pain 7/10; 15:24 Body Mass Index 27.46 (72.57 kg, 162.56 cm) aj1 MDM: 15:26 Patient medically screened. kb 15:42 Data reviewed: vital signs, nurses notes. Data interpreted: Pulse oximetry: on room air kb is 100 %. Interpretation: normal. Counseling: I had a detailed discussion with the patient and/or guardian regarding: the historical points, exam findings, and any diagnostic results supporting the discharge/admit diagnosis, the need for outpatient follow up, a family practitioner, to return to the emergency department if symptoms worsen or persist or if there are any questions or concerns that arise at home. Administered Medications: 15:50 Drug: Gillham 10 mg-325 mg 1 tabs Route: PO; bp 16:23 Follow up: Response: No adverse reaction bp 15:50 Drug: TORadol 30 mg Route: IM; Site: right deltoid; bp 16:23 Follow up: Response: No adverse reaction bp 16:22 Drug: Zofran 4 mg Route: PO; bp 16:23 Follow up: Response: No adverse reaction bp Disposition: 18:50 Co-signature as Attending Physician, Ray Black MD. Disposition: 09/15/18 16:05 Discharged to Home. Impression: Low back pain. - Condition is Stable. - Discharge Instructions: Back Injury Prevention, [id number], Back Pain, Adult, [id number], Back Exercises, [id number]. - Prescriptions for Cyclobenzaprine 10 mg Oral Tablet - take 1 tablet by ORAL route every 8 hours As needed; 21 tablet. Diclofenac Sodium 75 mg Oral Tablet, Delayed Release (E.C.) - take 1 tablet by ORAL route 2 times per day As needed; 30 tablet. Zofran 4 mg Oral Tablet - take 1 tablet by ORAL route every 6 hours As needed; 20 tablet. - Medication Reconciliation Form, Thank You Letter, Antibiotic Education, Prescription Opioid Use, Work release form form. - Follow up: Emergency Department; When: As needed; Reason: Worsening of condition. Follow up: Private Physician; When: 2 - 3 days; Reason: Recheck today's complaints, Continuance of care, Re-evaluation by your physician. Signatures: Saloni David, BENEDICTOC Alayna Rincon RN RN aj1 Ray Black MD MD gs Peltier, Brian, RN RN bp Corrections: (The following items were deleted from the chart) 16:38 16:05 09/15/2018 16:05 Discharged to Home. Impression: Low back pain. Condition is bp Stable. Forms are Medication Reconciliation Form, Thank You Letter, Antibiotic Education, Prescription Opioid Use. Follow up: Emergency Department; When: As needed; Reason: Worsening of condition. Follow up: Private Physician; When: 2 - 3 days; Reason: Recheck today's complaints, Continuance of care, Re-evaluation by your physician. kb
--- NOTE | 2018-09-15 16:06 | ER ---
Nurse's Notes [facility] Name: Nicolle Crenshaw Age: 47 yrs Sex: Female : 1970 Arrival Date: 09/15/2018 Time: 15:11 Bed 8 Private MD: Diagnosis: Low back pain Presentation: 09/15 15:23 Presenting complaint: Patient states: "I pulled my back at work" Patient reports back aj1 pain since 0600 this morning. Transition of care: patient was not received from another setting of care. Onset of symptoms was September 15, 2018. Risk Assessment: Do you want to hurt yourself or someone else? Patient reports no desire to harm self or others. Initial Sepsis Screen: Does the patient meet any 2 criteria? No. Patient's initial sepsis screen is negative. Does the patient have a suspected source of infection? No. Patient's initial sepsis screen is negative. Care prior to arrival: None. 15:23 Method Of Arrival: Wheelchair aj1 15:23 Acuity: BRENDON 4 aj1 Triage Assessment: 15:24 General: Appears in no apparent distress. comfortable, Behavior is calm, cooperative, aj1 appropriate for age. Pain: Complains of pain in back Pain currently is 7 out of 10 on a pain scale. Neuro: Level of Consciousness is awake, alert, obeys commands. Cardiovascular: Patient's skin is warm and dry. Respiratory: Airway is patent Respiratory effort is even, unlabored, Respiratory pattern is regular, symmetrical. Musculoskeletal: Range of motion: intact in all extremities. 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 - Social history:: Smoking status: Patient uses tobacco products, smokes one-half pack cigarettes per day. - Ebola Screening: : Patient denies travel to an Ebola-affected area in the 21 days before illness onset. Screenin:37 Abuse screen: Denies threats or abuse. Denies injuries from another. Nutritional bp screening: No deficits noted. Tuberculosis screening: No symptoms or risk factors identified. Fall Risk None identified. Assessment: 15:25 General: SEE TRIAGE NOTE. Neuro: Level of Consciousness is awake, alert, obeys bp commands, Oriented to person, place, time, situation, Appropriate for age. 16:22 Reassessment: PT D/C HOME VIA W/C WITH FAMILY, DX WITH BACK PAIN. bp Vital Signs: 15:24 BP 154 / 69; Pulse 74; Resp 18; Temp 98.1; Pulse Ox 100% on R/A; Weight 72.57 kg (R); aj1 Height 5 ft. 4 in. (162.56 cm) (R); Pain 7/10; 15:24 Body Mass Index 27.46 (72.57 kg, 162.56 cm) aj1 ED Course: 15:11 Patient arrived in ED. mr 15:24 Triage completed. aj1 15:24 Arm band placed on Patient placed in an exam room. aj1 15:26 Saloni David FNP-C is PHCP. kb 15:26 Ray Black MD is Attending Physician. kb 15:36 Deshawn Euceda, AMADEO is Primary Nurse. bp 15:37 Patient has correct armband on for positive identification. Bed in low position. Call bp light in reach. Side rails up X2. Adult w/ patient. 16:22 No provider procedures requiring assistance completed. Patient did not have IV access bp during this emergency room visit. Administered Medications: 15:50 Drug: [place] 10 mg-325 mg 1 tabs Route: PO; bp 16:23 Follow up: Response: No adverse reaction bp 15:50 Drug: TORadol 30 mg Route: IM; Site: right deltoid; bp 16:23 Follow up: Response: No adverse reaction bp 16:22 Drug: Zofran 4 mg Route: PO; bp 16:23 Follow up: Response: No adverse reaction bp Outcome: 16:05 Discharge ordered by . kb 16:22 Discharged to home via wheelchair, with family. bp 16:22 Condition: stable 16:22 Discharge instructions given to patient, Instructed on discharge instructions, follow up and referral plans. medication usage, Demonstrated understanding of instructions, follow-up care, medications, Prescriptions given X 2. 16:38 Patient left the ED. bp Signatures: Saloni David, BENEDICTOC HUGH-Alayna Nayak RN RN aj1 Randy Connie mr Deshawn Euceda, RN RN bp
[2018-09-15] MEDS ORDERED: ONDANSETRON 4 MG (ODT) TAB ONE (16:34)
[2018-09-15 16:58] VITALS: BP 154/69; TEMP 98.1; O2SAT 100
== END 2018-09-15 16:38 | disposition home or self-care (01) ==
LOC: ER 15:09
DX: M54.5 Low back pain (principal); F41.9 Anxiety disorder, unspecified; F32.9 Major depressive disorder, single episode, unspecified; F43.10 Post-traumatic stress disorder, unspecified; F17.210 Nicotine dependence, cigarettes, uncomplicated; Z88.3 Allergy status to other anti-infective agents
CPT/HCPCS: 96372; 99283

== ENCOUNTER 2018-09-28 15:38 | Emergency (ER) | payer OTHER, SELFPAY ==
--- OUTSIDE RECORDS SUMMARY | 2018-09-28 15:41 | XMS REPORT ---
:1970 [facility] [address] [place] [address] [address] [place] [address] Care Team Providers Name Role Phone Unavailable Unavailable Unavailable Problems This patient has no known problems. Allergies, Adverse Reactions, Alerts This patient has no known allergies or adverse reactions. Medications This patient has no known medications.
--- NOTE | 2018-09-28 16:38 | RAD REPORT ---
EXAM DESCRIPTION: RAD - Lumbar Spine 3 Views - 09/28/2018 4:19 pm CLINICAL HISTORY: Back pain radiating to both hips COMPARISON: None. FINDINGS: A three-view lumbar spine examination was performed. Lumbar bodies are normal in height and normal in AP alignment. There is a left convex curvature to t he lumbar spine probably part of a mild thoracolumbar scoliosis. No fused or anomalous vertebrae. No fracture or acute bony process seen. There is narrowing of the right lateral margin of the L3-4 disc space. This would not be unexpected given the concave contour of the lumbar spine in this region. Mil d endplate spurring changes present at this level. No significant facet degenerative change. No pars defects identified. IMPRESSION: Lumbar scoliosis is present as detailed. This results in narrowing of the right lateral margin of the L3-4 disc space. No acute findings seen. Concerns for disc herniation, central canal abnormality or occult vertebral b ranjana abnormality can be addressed with MR findings.
[2018-09-28] MEDS ORDERED: DIAZEPAM 5 MG TABLET ONE (16:44)
[2018-09-28] MEDS ORDERED: HYDROCODONE/APAP 7.5/325 MG TAB ONE (16:45)
[2018-09-28] MEDS ORDERED: KETOROLAC 30 MG/ML INJ ONE (16:45)
--- NOTE | 2018-09-28 17:08 | ER ---
Nurse's Notes [facility] Name: Nicolle Crenshaw Age: 47 yrs Sex: Female : 1970 Arrival Date: 09/28/2018 Time: 15:43 Bed 16 Private MD: Diagnosis: Low back pain;Thoracogenic scoliosis;Muscle spasm of back Presentation: 09/28 15:53 Presenting complaint: Low back pain that radiates to both hips after lifting heavy jug hb at work 2 weeks ago. Pt reports both feet turn purple when in sitting position. Transition of care: patient was not received from another setting of care. Onset of symptoms was September 28, 2018. Risk Assessment: Do you want to hurt yourself or someone else? Patient reports no desire to harm self or others. Initial Sepsis Screen: Does the patient meet any 2 criteria? No. Patient's initial sepsis screen is negative. Does the patient have a suspected source of infection? No. Patient's initial sepsis screen is negative. Care prior to arrival: None. 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 - Social history:: Smoking status: Patient/guardian denies using tobacco. - Ebola Screening: : No symptoms or risks identified at this time. Screenin:50 Abuse screen: Denies threats or abuse. Denies injuries from another. Nutritional jl7 screening: No deficits noted. Tuberculosis screening: No symptoms or risk factors identified. Fall Risk Gait- Weak (10 pts.). Total Villarreal Fall Scale indicates No Risk (0-24 pts). Assessment: 16:50 General: Appears in no apparent distress. uncomfortable, Behavior is cooperative, jl7 anxious, crying. Pain: Complains of pain in mid back area Pain radiates to thoracic area and low back area Pain currently is 10 out of 10 on a pain scale. Pain began A couple weeks ago Is continuous. Neuro: Level of Consciousness is awake, alert, obeys commands, Oriented to person, place, time, situation. Cardiovascular: Patient's skin is warm and dry. Respiratory: Airway is patent Respiratory effort is even, unlabored, Respiratory pattern is regular, symmetrical. Derm: Skin is pink, warm \T\ dry. Musculoskeletal: Reports pain in back. 17:30 Reassessment: Patient appears in no apparent distress at this time. Patient states jl7 feeling better. Patient states symptoms have improved. Vital Signs: 15:56 BP 108 / 84; Pulse 91; Resp 16; Temp 98.1; Pulse Ox 100% on R/A; Weight 72.57 kg; hb Height 5 ft. 4 in. (162.56 cm); Pain 8/10; 15:56 Body Mass Index 27.46 (72.57 kg, 162.56 cm) hb ED Course: 15:43 Patient arrived in ED. cl3 15:56 Triage completed. hb 15:56 Arm band placed on. hb 15:58 Terese Harrison FNP-C is PHCP. snw 15:58 Cade Hammond MD is Attending Physician. snw 16:17 Lumbar Spine (3 Views) XRAY In Process Unspecified. EDMS 17:00 Trent Jeffries, AMADEO is Primary Nurse. jl7 17:07 Patient has correct armband on for positive identification. Bed in low position. Call jl7 light in reach. Side rails up X 1. Pulse ox on. NIBP on. 17:47 No provider procedures requiring assistance completed. Patient did not have IV access jl7 during this emergency room visit. Administered Medications: 16:59 Drug: [place] (7.5 mg-325 mg) 1 tabs Route: PO; jl7 17:29 Follow up: Response: No adverse reaction; Pain is decreased jl7 17:00 Drug: Valium 10 mg Route: PO; jl7 19:22 Follow up: Response: No adverse reaction; Pain is decreased jl7 17:01 Drug: TORadol 30 mg Route: IM; Site: right deltoid; jl7 17:30 Follow up: Response: No adverse reaction; Pain is decreased jl7 Outcome: 17:07 Discharge ordered by . snw 17:47 Discharged to home ambulatory, with family. jl7 17:47 Condition: stable 17:47 Discharge instructions given to patient, family, Instructed on discharge instructions, follow up and referral plans. medication usage, Demonstrated understanding of instructions, follow-up care, medications, Prescriptions given X 3. 17:48 Patient left the ED. jl7 Signatures: Dispatcher [employer] EDMS Terese Harrison, BONDED STRUCTURES REPAIRER-C BONDED STRUCTURES REPAIRER-Csnw Jessica Mancuso RN RN Trent Jeffries RN RN jl7 Yehuda Bose cl3 Corrections: (The following items were deleted from the chart) 15:57 15:53 Acuity: BRENDON 3 hb hb
--- NOTE | 2018-09-28 17:08 | EDPHYS ---
Physician Documentation [facility] Name: Nicolle Crenshaw Age: 47 yrs Sex: Female : 1970 Arrival Date: 09/28/2018 Time: 15:43 Bed 16 Private MD: ED Physician Cade Hammond HPI: 09/28 16:32 This 47 yrs old Female presents to ER via Wheelchair with complaints of Back snw Pain. 16:32 The patient presents with pain that is acute. The symptoms are located in the low back. snw Onset: The symptoms/episode began/occurred suddenly, and became worse and became persistent. The pain radiates. Associated signs and symptoms: The patient has no apparent associated signs or symptoms. The problem was sustained when bending over, when lifting heavy object. Severity of symptoms: At their worst the symptoms were moderate, severe. The patient has experienced similar episodes in the past, chronically. It is unknown whether or not the patient has recently seen a physician. 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 - Social history:: Smoking status: Patient/guardian denies using tobacco. - Ebola Screening: : No symptoms or risks identified at this time. ROS: 16:32 Constitutional: Negative for fever, chills, and weight loss, Eyes: Negative for injury, snw pain, redness, and discharge, ENT: Negative for injury, pain, and discharge, Neck: Negative for injury, pain, and swelling, Cardiovascular: Negative for chest pain, palpitations, and edema, Respiratory: Negative for shortness of breath, cough, wheezing, and pleuritic chest pain, Abdomen/GI: Negative for abdominal pain, nausea, vomiting, diarrhea, and constipation, : Negative for injury, bleeding, discharge, and swelling, MS/Extremity: Negative for injury and deformity, Skin: Negative for injury, rash, and discoloration, Neuro: Negative for headache, weakness, numbness, tingling, and seizure. 16:32 Back: Positive for pain at rest, pain with movement, of the low back area. Exam: 17:16 Head/Face: Normocephalic, atraumatic. Eyes: Pupils equal round and reactive to light, snw extra-ocular motions intact. Lids and lashes normal. Conjunctiva and sclera are non-icteric and not injected. Cornea within normal limits. Periorbital areas with no swelling, redness, or edema. ENT: Nares patent. No nasal discharge, no septal abnormalities noted. Tympanic membranes are normal and external auditory canals are clear. Oropharynx with no redness, swelling, or masses, exudates, or evidence of obstruction, uvula midline. Mucous membranes moist. Neck: Trachea midline, no thyromegaly or masses palpated, and no cervical lymphadenopathy. Supple, full range of motion without nuchal rigidity, or vertebral point tenderness. No Meningismus. Chest/axilla: Normal chest wall appearance and motion. Nontender with no deformity. No lesions are appreciated. Cardiovascular: Regular rate and rhythm with a normal S1 and S2. No gallops, murmurs, or rubs. Normal PMI, no JVD. No pulse deficits. Respiratory: Lungs have equal breath sounds bilaterally, clear to auscultation and percussion. No rales, rhonchi or wheezes noted. No increased work of breathing, no retractions or nasal flaring. Abdomen/GI: Soft, non-tender, with normal bowel sounds. No distension or tympany. No guarding or rebound. No evidence of tenderness throughout. Back: No spinal tenderness. No costovertebral tenderness. Full range of motion. Skin: Warm, dry with normal turgor. Normal color with no rashes, no lesions, and no evidence of cellulitis. MS/ Extremity: Pulses equal, no cyanosis. Neurovascular intact. Full, normal range of motion. Neuro: Awake and alert, GCS 15, oriented to person, place, time, and situation. Cranial nerves II-XII grossly intact. Motor strength 5/5 in all extremities. Sensory grossly intact. Cerebellar exam normal. Normal gait. 17:16 Neuro: Orientation: is normal, Mentation: is normal, Motor: pt tearful and not wanting to move, Sensation: is normal. 17:16 Psych: Behavior/mood is anxious, depressed. Vital Signs: 15:56 BP 108 / 84; Pulse 91; Resp 16; Temp 98.1; Pulse Ox 100% on R/A; Weight 72.57 kg; hb Height 5 ft. 4 in. (162.56 cm); Pain 8/10; 15:56 Body Mass Index 27.46 (72.57 kg, 162.56 cm) hb MDM: 16:01 Patient medically screened. snw 17:15 Data reviewed: vital signs, nurses notes. Data interpreted: Pulse oximetry: on room air snw is 100 %. Interpretation: normal. Counseling: I had a detailed discussion with the patient and/or guardian regarding: the historical points, exam findings, and any diagnostic results supporting the discharge/admit diagnosis, the presence of at least one elevated blood pressure reading (>120/80) during this emergency department visit, radiology results, the need for outpatient follow up, to return to the emergency department if symptoms worsen or persist or if there are any questions or concerns that arise at home. Special discussion: Based on the history and exam findings, there is no indication for further emergent testing or inpatient evaluation. I discussed with the patient/guardian the need to see the neurologist for further evaluation of the symptoms. I discussed with the patient/guardian the need to see the orthopedic surgeon for further evaluation of the symptoms. I discussed with the patient/guardian the need to see the primary care provider for further evaluation of the symptoms. 09/28 15:58 Order name: Lumbar Spine (3 Views) XRAY; Complete Time: 17:05 snw Administered Medications: 16:59 Drug: [place] (7.5 mg-325 mg) 1 tabs Route: PO; jl7 17:29 Follow up: Response: No adverse reaction; Pain is decreased jl7 17:00 Drug: Valium 10 mg Route: PO; jl7 19:22 Follow up: Response: No adverse reaction; Pain is decreased jl7 17:01 Drug: TORadol 30 mg Route: IM; Site: right deltoid; jl7 17:30 Follow up: Response: No adverse reaction; Pain is decreased jl7 Disposition: 09/28/18 17:07 Discharged to Home. Impression: Low back pain, Thoracogenic scoliosis, Muscle spasm of back. - Condition is Stable. - Discharge Instructions: Back Pain, Adult, Chronic Back Pain, Muscle Cramps and Spasms, Musculoskeletal Pain, Back Injury Prevention, [id number], Cryotherapy, Rehydration, Adult, Heat Therapy, Radicular Pain. - Prescriptions for Prednisone 20 mg Oral Tablet - take 2 tablet by ORAL route once daily for 5 days; 10 tablet. orphenadrine citrate 100 mg Oral Tablet Sustained Release - take 1 tablet by ORAL route 2 times per day As needed; 20 tablet. Valium 2 mg Oral Tablet - take 1 tablet by ORAL route every 8 hours As needed; 6 tablet. - Work release form, Medication Reconciliation Form, Thank You Letter, Antibiotic Education, Prescription Opioid Use form. - Follow up: Private Physician; When: 2 - 3 days; Reason: Recheck today's complaints, Continuance of care, Re-evaluation by your physician. Follow up: Emergency Department; When: As needed; Reason: Worsening of condition. Addendum: 10/01/2018 09:07 Co-signature as Attending Physician, Cade Hammond MD I agree with the assessment and k dr plan of care. Signatures: Dispatcher [employer] EDNH Cade Hammond MD MD [facility] Terese Harrison, CLINICAL RESEARCH ANALYST-C CLINICAL RESEARCH ANALYST-Csnw eJssica Mancuso RN RN Trent Jeffries RN RN jl7 Corrections: (The following items were deleted from the chart) 09/28 17:48 17:07 09/28/2018 17:07 Discharged to Home. Impression: Low back pain; Thoracogenic jl7 scoliosis; Muscle spasm of back. Condition is Stable. Forms are Medication Reconciliation Form, Thank You Letter, Antibiotic Education, Prescription Opioid Use. Follow up: Private Physician; When: 2 - 3 days; Reason: Recheck today's complaints, Continuance of care, Re-evaluation by your physician. Follow up: Emergency Department; When: As needed; Reason: Worsening of condition. snw
[2018-09-28 18:13] VITALS: BP 108/84; TEMP 98.1; O2SAT 100
== END 2018-09-28 17:48 | disposition home or self-care (01) ==
LOC: ER 15:38
DX: M41.30 Thoracogenic scoliosis, site unspecified (principal); M62.830 Muscle spasm of back; F32.9 Major depressive disorder, single episode, unspecified; F41.9 Anxiety disorder, unspecified; F43.10 Post-traumatic stress disorder, unspecified; Z88.1 Allergy status to other antibiotic agents
CPT/HCPCS: 72100; 96372; 99284

== ENCOUNTER 2018-10-07 13:38 | Emergency (ER) | payer OTHER, SELFPAY ==
--- OUTSIDE RECORDS SUMMARY | 2018-10-07 13:40 | XMS REPORT ---
:1970 [facility] Address [address] [place] [address] [address] [place] [address] Care Team Providers Name Role Phone Unavailable Unavailable Unavailable Problems This patient has no known problems. Allergies, Adverse Reactions, Alerts This patient has no known allergies or adverse reactions. Medications This patient has no known medications.
[2018-10-07] MEDS ORDERED: LORazepam 2 MG/ML VIAL ONE (14:05)
[2018-10-07 14:34] LABS: Absolute Lymphocytes (CBC) 2.9 K/uL (0.7-4.9); Basophils % 2.1 % (0-1.3); Hematocrit 45.8 % (36.0-45.0); Lymphocytes % 30.9 % (15.3-44.8); MPV 8.9 fL (7.6-11.3)
[2018-10-07 14:37] LABS: Protime INR 0.89
[2018-10-07] MEDS ORDERED: NA CHLORIDE 0.9% 1,000 ML ONE (14:42)
[2018-10-07 14:59] LABS: ALT/SGPT 24 U/L (12-78); AST/SGOT 16 U/L (15-37); Albumin 4.3 g/dL (3.4-5.0); Alkaline Phosphatase 63 U/L (45-117); BUN Blood Urea Nitrogen 11 mg/dL (7-18); Bicarbonate 24 mmol/L (21-32); Bilirubin Direct < 0.1 mg/dL (0-0.2); Bilirubin Total 0.6 mg/dL (0.2-1.0); Glucose Level 72 mg/dL (74-106); Potassium 4.1 mmol/L (3.5-5.1); Protein, Total 7.3 g/dL (6.4-8.2); Sodium Level 143 mmol/L (136-145)
--- NOTE | 2018-10-07 15:15 | ER ---
Nurse's Notes [facility] Name: Nicolle Crenshaw Age: 47 yrs Sex: Female : 1970 Arrival Date: 10/07/2018 Time: 13:38 Bed 16 Private MD: Diagnosis: Epileptic seizures related to external causes;Panic disorder [episodic paroxysmal anxiety] without agoraphobia Presentation: 10/07 13:56 Presenting complaint: Patient states: Patient is jerking arms and legs, states that she aj1 was at home on the couch and she started to feel anxious and she has "anxiety seizures" Patient is taking while shaking and hyperventilating. Patient was instructed to try to slow her breathing, take slow deep breaths. Transition of care: patient was not received from another setting of care. Onset of symptoms was October 07, 2018. Risk Assessment: Do you want to hurt yourself or someone else? Patient reports no desire to harm self or others. Initial Sepsis Screen: Does the patient meet any 2 criteria? No. Patient's initial sepsis screen is negative. Does the patient have a suspected source of infection? No. Patient's initial sepsis screen is negative. Care prior to arrival: None. 13:56 Method Of Arrival: Ambulatory aj1 13:56 Acuity: BRENDON 3 aj1 Triage Assessment: 14:20 General: Appears uncomfortable, Behavior is anxious, restless, uncooperative. Pain: aj1 Complains of pain in "everywhere". EENT: No signs and/or symptoms were reported regarding the EENT system. Neuro: Level of Consciousness is awake, alert, obeys commands, Oriented to person, place, time, situation, Speech is normal, Patient is jerking arms and legs, shaking, hyperventilating. Patient is taking to staff during this episode.. Reports dizziness. Cardiovascular: Patient's skin is warm and dry. Respiratory: Airway is patent Respiratory effort is even, unlabored, Respiratory pattern is regular, symmetrical. GI: No signs and/or symptoms were reported involving the gastrointestinal system. : No signs and/or symptoms were reported regarding the genitourinary system. Derm: Skin is flushed. Musculoskeletal: Circulation, motion, and sensation intact. Historical: - Allergies: 14:20 Levofloxacin; aj1 - Home Meds: 14:20 clonazepam 2 mg Oral tab 1 tab 3 times per day [Active]; Cymbalta 30 mg Oral cpDR 1 cap aj1 2 times per day [Active]; Seroquel Oral [Active]; - PMHx: 14:20 Anxiety; Back pain; Depression; PTSD; aj1 - Immunization history:: Flu vaccine is not up to date. - Social history:: Smoking status: Patient uses tobacco products, smokes one pack cigarettes per day. - Family history:: not pertinent. - Ebola Screening: : Patient denies travel to an Ebola-affected area in the 21 days before illness onset. Screenin:23 Abuse screen: Denies threats or abuse. Denies injuries from another. Nutritional aj1 screening: No deficits noted. Tuberculosis screening: No symptoms or risk factors identified. 15:41 Fall Risk None identified. aj1 Assessment: 14:23 Reassessment: see triage assessment. aj1 14:38 Reassessment: pt states she was starting to fell better but now she's dizzy and light iw headed again, pt shaking arms in bed, starting to hyperventilate, pt encouraged to try to slow breathing, pt c/o headache, verbal encouragement given. 15:30 Reassessment: Patient appears in no apparent distress at this time. Patient and/or aj1 family updated on plan of care and expected duration. Pain level reassessed. Patient is alert, oriented x 3, equal unlabored respirations, skin warm/dry/pink. Patient appears calm at this time, states that she is feeling better. Vital Signs: 14:36 BP 144 / 101; Pulse 104; Resp 26 S; Pulse Ox 97% on R/A; iw 15:01 BP 133 / 84; Pulse 76; Resp 18; Pulse Ox 98% on R/A; aj1 [place] Coma Score: 14:20 Eye Response: spontaneous(4). Verbal Response: oriented(5). Motor Response: obeys aj1 commands(6). Total: 15. ED Course: 13:38 Patient arrived in ED. as 13:50 Julio Ramires MD is Attending Physician. oswaldo 13:56 Alayna Perales, AMADEO is Primary Nurse. aj1 13:58 Triage completed. aj1 14:20 Arm band placed on. aj1 14:23 Patient has correct armband on for positive identification. aj1 14:23 No provider procedures requiring assistance completed. Inserted saline lock: 22 gauge aj1 in right antecubital area, using aseptic technique. 15:41 Seizure precautions initiated. aj1 15:42 IV discontinued, intact, bleeding controlled, No redness/swelling at site. Pressure aj1 dressing applied. Administered Medications: 14:17 Drug: Ativan 2 mg Route: IVP; Site: right antecubital; aj1 15:44 Follow up: Response: No adverse reaction aj1 14:42 Drug: NS 0.9% 1000 ml Route: IV; Rate: 1 bolus; Site: right antecubital; aj1 15:43 Follow up: IV Status: Completed infusion; IV Intake: 1000ml aj1 Intake: 15:43 IV: 1000ml; Total: 1000ml. aj1 Outcome: 15:14 Discharge ordered by . [facility] 15:42 Discharged to home via wheelchair, with family. aj1 15:42 Condition: good 15:42 Discharge instructions given to patient, Instructed on discharge instructions, follow up and referral plans. medication usage, Demonstrated understanding of instructions, follow-up care, medications, Prescriptions given X 1. 15:43 Patient left the ED. aj1 Signatures: Alayna Perales RN RN aj1 Julio Ramires MD MD cha Martinez, Amelia as Yana Amador, AMADEO RN iw Corrections: (The following items were deleted from the chart) 14:36 14:36 BP 144 / 101; Pulse 104bpm; Resp 30bpm; Spontaneous; Pulse Ox 97% RA; iw iw 15:42 15:30 Reassessment: Patient appears in no apparent distress at this time. No changes aj1 from previously documented assessment. Patient and/or family updated on plan of care and expected duration. Pain level reassessed. Patient is alert, oriented x 3, equal unlabored respirations, skin warm/dry/pink. aj1
--- NOTE | 2018-10-07 15:16 | EDPHYS ---
Physician Documentation [facility] Name: Nicolle Crenshaw Age: 47 yrs Sex: Female : 1970 Arrival Date: 10/07/2018 Time: 13:38 Bed 16 Private MD: KATE Physician Julio Ramires HPI: 10/07 14:03 This 47 yrs old Female presents to ER via Ambulatory with complaints of oswaldo Seizure, Anxiety. 14:03 The patient presents after having a single isolated seizure, that lasted an unknown oswaldo period of time. Character of seizure(s): Loss of consciousness: the patient did not lose consciousness, Motor activity: generalized, Incontinence: none, Apnea: the patient did not experience apnea, Circulation: the patient did not experience evidence of pulse disturbance. Seizure onset: the onset is not known. Context: the seizure(s) was witnessed, by family. Seizure Hx: panic seizure. Associated injury: The patient did not suffer any apparent associated injury. Current symptoms: anxious, shaking. The patient has experienced similar episodes in the past, a few times. Historical: - Allergies: 14:20 Levofloxacin; aj1 - Home Meds: 14:20 clonazepam 2 mg Oral tab 1 tab 3 times per day [Active]; Cymbalta 30 mg Oral cpDR 1 cap aj1 2 times per day [Active]; Seroquel Oral [Active]; - PMHx: 14:20 Anxiety; Back pain; Depression; PTSD; aj1 - Immunization history:: Flu vaccine is not up to date. - Social history:: Smoking status: Patient uses tobacco products, smokes one pack cigarettes per day. - Family history:: not pertinent. - Ebola Screening: : Patient denies travel to an Ebola-affected area in the 21 days before illness onset. ROS: 14:03 Constitutional: Negative for fever, chills, and weight loss, Eyes: Negative for injury, oswaldo pain, redness, and discharge, ENT: Negative for injury, pain, and discharge, Neck: Negative for injury, pain, and swelling, Cardiovascular: Negative for chest pain, palpitations, and edema, Respiratory: Negative for shortness of breath, cough, wheezing, and pleuritic chest pain, Abdomen/GI: Negative for abdominal pain, nausea, vomiting, diarrhea, and constipation, Back: Negative for injury and pain, : Negative for injury, bleeding, discharge, and swelling, MS/Extremity: Negative for injury and deformity, Skin: Negative for injury, rash, and discoloration, Allergy/Immunology: Negative for hives, rash, and allergies, Endocrine: Negative for neck swelling, polydipsia, polyuria, polyphagia, and marked weight changes, Hematologic/Lymphatic: Negative for swollen nodes, abnormal bleeding, and unusual bruising. 14:03 Neuro: Positive for altered mental status, anxious. 14:03 Psych: Positive for anxiety. Exam: 14:03 Constitutional: This is a well developed, well nourished patient who is awake, alert, oswaldo and in no acute distress. Head/Face: Normocephalic, atraumatic. Eyes: Pupils equal round and reactive to light, extra-ocular motions intact. Lids and lashes normal. Conjunctiva and sclera are non-icteric and not injected. Cornea within normal limits. Periorbital areas with no swelling, redness, or edema. ENT: Nares patent. No nasal discharge, no septal abnormalities noted. Tympanic membranes are normal and external auditory canals are clear. Oropharynx with no redness, swelling, or masses, exudates, or evidence of obstruction, uvula midline. Mucous membranes moist. Neck: Trachea midline, no thyromegaly or masses palpated, and no cervical lymphadenopathy. Supple, full range of motion without nuchal rigidity, or vertebral point tenderness. No Meningismus. Chest/axilla: Normal chest wall appearance and motion. Nontender with no deformity. No lesions are appreciated. Respiratory: Lungs have equal breath sounds bilaterally, clear to auscultation and percussion. No rales, rhonchi or wheezes noted. No increased work of breathing, no retractions or nasal flaring. Abdomen/GI: Soft, non-tender, with normal bowel sounds. No distension or tympany. No guarding or rebound. No evidence of tenderness throughout. Back: No spinal tenderness. No costovertebral tenderness. Full range of motion. Skin: Warm, dry with normal turgor. Normal color with no rashes, no lesions, and no evidence of cellulitis. MS/ Extremity: Pulses equal, no cyanosis. Neurovascular intact. Full, normal range of motion. Psych: Awake, alert, with orientation to person, place and time. Behavior, mood, and affect are within normal limits. 14:03 Cardiovascular: Rate: tachycardic, Rhythm: regular, Pulses: no pulse deficits are appreciated, Pulses are 4+ in bilateral radial, brachial, femoral, popliteal, posterior tibial and and dorsalis pedis arteries.. Heart sounds: normal, Edema: is not appreciated, JVD: is not appreciated. 14:03 Musculoskeletal/extremity: DVT Exam: No signs of deep vein thrombosis. no pain, no swelling, no tenderness, negative Homans' sign noted on exam, no appreciated bluish discoloration, no erythema, no increased warmth. Vital Signs: 14:36 BP 144 / 101; Pulse 104; Resp 26 S; Pulse Ox 97% on R/A; iw 15:01 BP 133 / 84; Pulse 76; Resp 18; Pulse Ox 98% on R/A; aj1 [place] Coma Score: 14:20 Eye Response: spontaneous(4). Verbal Response: oriented(5). Motor Response: obeys aj1 commands(6). Total: 15. MDM: 13:51 Patient medically screened. [facility] 14:08 Data reviewed: vital signs, nurses notes, lab test result(s), EKG. [facility] 10/07 14:02 Order name: Acetaminophen [facility] 10/07 14:02 Order name: Basic Metabolic Panel [facility] 10/07 14:02 Order name: CBC with Diff [facility] 10/07 14:02 Order name: ETOH Level [facility] 10/07 14:02 Order name: Hepatic Function [facility] 10/07 14:02 Order name: PT-INR; Complete Time: 15:12 [facility] 10/07 14:02 Order name: Ptt, Activated; Complete Time: 15:12 [facility] 10/07 14:02 Order name: Salicylate; Complete Time: 15:12 [facility] 10/07 14:02 Order name: Urine Drug Screen [facility] 10/07 14:07 Order name: Acetaminophen Level; Complete Time: 15:12 [facility] 10/07 14:07 Order name: Basic Metabolic Panel; Complete Time: 15:12 [facility] 10/07 14:07 Order name: CBC with Automated Diff; Complete Time: 15:12 [facility] 10/07 14:07 Order name: Alcohol Serum/Plasma; Complete Time: 15:12 [facility] 10/07 14:07 Order name: Liver (Hepatic) Function; Complete Time: 15:12 [facility] 10/07 14:02 Order name: Urine Test (obtain specimen); Complete Time: 15:18 [facility] 10/07 14:02 Order name: EKG; Complete Time: 14:07 [facility] 10/07 14:02 Order name: EKG - Nurse/Tech; Complete Time: 15:15 [facility] 10/07 14:02 Order name: IV Saline Lock; Complete Time: 14:20 [facility] 10/07 14:02 Order name: Labs collected and sent; Complete Time: 14:20 [facility] 10/07 14:02 Order name: Urine Dipstick-Ancillary (obtain specimen); Complete Time: 15:18 [facility] 10/07 14:02 Order name: Seizure Precautions; Complete Time: 14:20 [facility] 10/07 15:21 Order name: Urine Dipstick--Ancillary (enter results) em 10/07 15:21 Order name: Urine --Ancillary (enter results) [facility] Administered Medications: 14:17 Drug: Ativan 2 mg Route: IVP; Site: right antecubital; [facility] 15:44 Follow up: Response: No adverse reaction [facility] 14:42 Drug: NS 0.9% 1000 ml Route: IV; Rate: 1 bolus; Site: right antecubital; [facility] 15:43 Follow up: IV Status: Completed infusion; IV Intake: 1000ml [facility] Disposition: 10/07/18 15:14 Discharged to Home. Impression: Epileptic seizures related to external causes, Panic disorder [episodic paroxysmal anxiety] without agoraphobia. - Condition is Stable. - Discharge Instructions: Panic Attacks, Nonepileptic Seizures, Seizure, Adult, Seizure, Adult, [id number], Panic Attacks, [id number]. - Prescriptions for Benadryl 25 mg Oral Capsule - take 1 capsule by ORAL route every 6 hours As needed; 30 tablet. - Medication Reconciliation Form, Thank You Letter, Antibiotic Education, Prescription Opioid Use form. - Follow up: Private Physician; When: 2 - 3 days; Reason: Recheck today's complaints, Continuance of care, Re-evaluation by your physician. - Problem is new. - Symptoms have improved. Signatures: Dispatcher [employer] EDAlayna Swanson RN RN aj1 Julio Ramires MD MD [facility] Corrections: (The following items were deleted from the chart) 15:43 15:14 10/07/2018 15:14 Discharged to Home. Impression: Epileptic seizures related to aj1 external causes; Panic disorder [episodic paroxysmal anxiety] without agoraphobia. Condition is Stable. Discharge Instructions: Panic Attacks, Nonepileptic Seizures, Seizure, Adult, Seizure, Adult, [id number], Panic Attacks, [id number]. Prescriptions for Benadryl 25 mg Oral Capsule - take 1 capsule by ORAL route every 6 hours As needed; 30 tablet, Xanax 0.5 mg Oral Tablet - take 1 tablet by ORAL route every 8 hours As needed; 20 tablet. and Forms are Medication Reconciliation Form, Thank You Letter, Antibiotic Education, Prescription Opioid Use. Follow up: Private Physician; When: 2 - 3 days; Reason: Recheck today's complaints, Continuance of care, Re-evaluation by your physician. Problem is new. Symptoms have improved. oswaldo
[2018-10-07 15:34] LABS: Barbiturates NEGATIVE (NEGATIVE); Benzodiazepines NEGATIVE (NEGATIVE); Cocaine NEGATIVE (NEGATIVE); METHAMPHETAM NEGATIVE (NEGATIVE); Methadone NEGATIVE (NEGATIVE); Opiates NEGATIVE (NEGATIVE); Phencyclidine NEGATIVE (NEGATIVE); THC Cannibis NEGATIVE (NEGATIVE)
[2018-10-07 17:04] VITALS: BP 133/84; O2SAT 98
[2018-10-07 17:54] LABS: Urine Blood TRACE (NEG); Urine Glucose NEGATIVE (NEG); Urine Protein NEGATIVE (NEG); Urine Specific Gravity 1.015 (1.005-1.030); Urine pH 7.5 (5.0-7.0)
--- NOTE | 2018-10-08 07:37 | EKG ---
Test Date: 2018-10-07 Test Time: 15:15:33 Director Of Software Development: JENNI MEASUREMENT RESULTS: Intervals: Rate: 73 MA: 162 QRSD: 70 QT: 414 QTc: 456 [place]: P: 54 MA: 162 QRS: -1 T: 21 INTERPRETIVE STATEMENTS: Normal sinus rhythm Minimal voltage criteria for LVH, may be normal variant Borderline ECG Compared to ECG 03/17/2018 14:18:57 Left ventricular hypertrophy now present Sinus bradycardia no longer present Electronically Signed On 10-08-18 07:36:00 CDT by Josef Bergman
== END 2018-10-07 15:43 | disposition home or self-care (01) ==
LOC: ER 13:38
DX: F41.0 Panic disorder [episodic paroxysmal anxiety] (principal); F17.210 Nicotine dependence, cigarettes, uncomplicated; F32.9 Major depressive disorder, single episode, unspecified; Z88.1 Allergy status to other antibiotic agents
CPT/HCPCS: 36415; 80048; 80076; 80307; 80320; 80329; 81003; 81025; 85025; 85610; 85730; 93005; 96361; 96374; 99284; J7030

== ENCOUNTER 2018-10-26 15:26 | Emergency (ER) | payer SELFPAY ==
[2018-10-26] MEDS ORDERED: FENTANYL CITR 100 MCG/2 ML ONE (15:52)
[2018-10-26] MEDS ORDERED: NA CHLORIDE 0.9% 1,000 ML ONE (15:52)
[2018-10-26 16:08] LABS: Absolute Lymphocytes (CBC) 2.2 K/uL (0.7-4.9); Basophils % 0.7 % (0-1.3); Hematocrit 40.3 % (36.0-45.0); Lymphocytes % 34.4 % (15.3-44.8); MPV 8.6 fL (7.6-11.3); RBC Red Blood Cell Count 4.62 M/uL (3.86-4.86)
[2018-10-26 16:28] LABS: BUN Blood Urea Nitrogen 11 mg/dL (7-18); Bicarbonate 28 mmol/L (21-32); Glucose Level 78 mg/dL (74-106); Potassium 3.7 mmol/L (3.5-5.1); Sodium Level 143 mmol/L (136-145); Troponin I < 0.02 ng/mL (0.0-0.045)
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
[2018-10-26] MEDS ORDERED: CYCLOBENZAPRINE 10 MG TAB ONE (18:13)
[2018-10-26] MEDS ORDERED: HYDROCODONE/APAP 7.5/325 MG TAB ONE (18:13)
[2018-10-26] MEDS ORDERED: KETOROLAC 30 MG/ML INJ ONE (18:14)
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
[2018-10-26 19:21] VITALS: BP 148/98; TEMP 98.2; O2SAT 100
--- NOTE | 2018-10-28 08:10 | EKG ---
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
== END 2018-10-26 19:08 | disposition home or self-care (01) ==
LOC: ER 15:26
DX: M54.9 Dorsalgia, unspecified (principal); M54.2 Cervicalgia; F41.8 Other specified anxiety disorders; V43.52XA Car driver injured in collision with other type car in traffic accident, initial encounter; Y93.89 Activity, other specified; Y92.410 Unspecified street and highway as the place of occurrence of the external cause; Z88.1 Allergy status to other antibiotic agents
CPT/HCPCS: 36415; 70450; 71260; 72125; 74177; 80048; 84484; 85025; 86850; 86900; 86901; 93005; 96374; 96375; 99285; J3010; J7030; Q9967

== ENCOUNTER 2020-02-06 11:54 | Emergency (ER) | payer SELFPAY ==
[2020-02-06] MEDS ORDERED: KETOROLAC 30 MG/ML INJ ONE ×2 (14:24→14:44)
[2020-02-06] MEDS ORDERED: MORPHINE 4 MG/ML SYR ONE (14:24)
[2020-02-06] MEDS ORDERED: ONDANSETRON 4 MG (ODT) TAB ONE (14:44)
--- NOTE | 2020-02-06 15:44 | EDPHYS ---
Physician Documentation [facility] Name: Nicolle Crenshaw Age: 49 yrs Sex: Female : 1970 Arrival Date: 02/06/2020 Time: 11:55 Bed 27 Private MD: ED Physician Cade Hammond HPI: 02/05 13:54 This 49 yrs old Female presents to ER via Wheelchair with complaints of Back cp Pain. 13:54 The patient presents with pain that is acute. cp 13:54 The symptoms are located in the upper back and mid back and lower back bilaterally. cp Onset: The symptoms/episode began/occurred today. The pain radiates to the chest. 13:54 The problem was sustained Patient reports pain started immediately today when she stood cp up turned after dragging Leandro decorations from attic. Historical: - Allergies: 13:06 Levofloxacin; iw 13:06 Fentanyl; iw - PMHx: 13:06 Anxiety; Back pain; Depression; PTSD; iw - PSHx: 13:06 ; Cholecystectomy; iw - Immunization history:: Adult Immunizations unknown. - Social history:: Smoking status: Patient reports the use of cigarette tobacco products. ROS: 14:00 Eyes: Negative for injury, pain, redness, and discharge. cp 14:00 Constitutional: Negative for body aches, chills, fever, poor PO intake. 14:00 Cardiovascular: Negative for chest pain, edema, palpitations. 14:00 Respiratory: Negative for cough, shortness of breath, wheezing. 14:00 Abdomen/GI: Negative for abdominal pain, nausea, vomiting, and diarrhea, constipation, bowel incontinence. 14:00 Back: Positive for pain at rest, pain with movement. 14:00 : Negative for urinary symptoms, difficulty urinating. 14:00 Neuro: Negative for altered mental status, headache, syncope, weakness. 14:00 All other systems are negative. Exam: 14:05 Constitutional: The patient appears in no acute distress, alert, awake, non-toxic, well cp developed, well nourished, uncomfortable. 14:05 Head/Face: Normocephalic, atraumatic. cp 14:05 Eyes: Periorbital structures: appear normal, Conjunctiva: normal, no exudate, no injection, Sclera: no appreciated abnormality, Lids and lashes: appear normal, bilaterally. 14:05 ENT: External ear(s): are unremarkable, Nose: is normal, Posterior pharynx: Airway: no evidence of obstruction, patent. 14:05 Neck: C-spine: vertebral tenderness, is not appreciated, crepitus, is not appreciated, ROM/movement: is normal, is supple, without pain, no range of motions limitations. 14:05 Chest/axilla: Inspection: normal, Palpation: is normal, no crepitus, no tenderness. 14:05 Cardiovascular: Rate: normal, Rhythm: regular. 14:05 Respiratory: the patient does not display signs of respiratory distress, Respirations: normal, no use of accessory muscles, no retractions, labored breathing, is not present, Breath sounds: are clear throughout, no decreased breath sounds. 14:05 Abdomen/GI: Inspection: abdomen appears normal, Palpation: abdomen is soft and non-tender, in all quadrants. 14:05 Back: pain, that is severe, of the upper back and mid back and lower back, ROM is painful, with all movement, Straight leg raises: of both lower extremities does not illicit pain. 14:05 Neuro: Orientation: to person, place \T\ time. Mentation: is normal, Cerebellar function: is grossly normal, Motor: moves all fours, strength is normal, Sensation: is normal. 15:45 ECG was reviewed by the Attending Physician. cp Vital Signs: 13:03 BP 125 / 73; Pulse 71; Resp 16; Temp 98.3; Pulse Ox 100% on R/A; Weight 83.91 kg; iw Height 5 ft. 4 in. (162.56 cm); Pain 8/10; 14:27 BP 136 / 93; Pulse 76; Resp 17; Pulse Ox 100% ; Pain 8/10; jl7 13:03 Body Mass Index 31.75 (83.91 kg, 162.56 cm) iw MDM: 13:54 Patient medically screened. cp 14:00 Differential diagnosis: chronic back pain, Pyelonephritis ruptured disc, cp Ureterolithiasis. 15:02 ED course: Review of [place] prescription monitor website shows no active RXs for cp narcotic pain meds. 15:43 Data reviewed: vital signs, nurses notes, EKG, and as a result, I will discharge cp patient. 15:43 Counseling: I had a detailed discussion with the patient and/or guardian regarding: the cp historical points, exam findings, and any diagnostic results supporting the discharge/admit diagnosis, the need for outpatient follow up, a family practitioner, to return to the emergency department if symptoms worsen or persist or if there are any questions or concerns that arise at home. Response to treatment: the patient's symptoms have markedly improved after treatment. ED course: VSS. Will discharge to home for continued monitoring. 02/05 15:24 Order name: EKG; Complete Time: 15:24 cp 02/05 15:24 Order name: EKG - Nurse/Tech; Complete Time: 15:45 cp EC:45 Rate is 76 beats/min. Rhythm is regular. RI interval is normal. QRS interval is normal. cp QT interval is normal. T waves are Inverted in leads III, aVR. Interpreted by me. Reviewed by me. Administered Medications: 14:28 Drug: TORadol 60 mg Route: IM; Site: right deltoid; jl7 15:59 Follow up: Response: No adverse reaction; Pain is decreased aa5 14:28 Drug: morphine 4 mg Route: IM; Site: left deltoid; jl7 15:59 Follow up: Response: No adverse reaction; Pain is decreased aa5 Disposition: 02/06/20 15:44 Discharged to Home. Impression: Dorsalgia. - Condition is Stable. - Discharge Instructions: Back Pain, Adult. - Prescriptions for Lidoderm 5 % Topical adhesive patch,medicated - apply 1 patch by TRANSDERMAL route once daily; 1 box. Ibuprofen 800 mg Oral Tablet - take 1 tablet by ORAL route every 8 hours As needed take with food; 30 tablet. Tylenol- Codeine #3 300-30 mg Oral Tablet - take 2 tablets by ORAL route every 8-12 hours As needed; 12 tablet. Baclofen 10 mg Oral Tablet - take 1 tablet by ORAL route 3 times per day; 20 tablet. - Medication Reconciliation Form, Thank You Letter, Antibiotic Education, Prescription Opioid Use form. - Follow up: Private Physician; When: 1 - 2 days; Reason: Recheck today's complaints. - Problem is new. - Symptoms have improved. Addendum: 02/07/2020 19:59 Co-signature as Attending Physician, Cade Hammond MD I agree with the assessment and [facility] plan of care. Signatures: Rittger, Cade, MD MD kdr Yana Amador RN RN iw Calderon, Audri, RN RN aa5 Julio Delgadillo PA PA Trent Pettit RN RN jl7 Corrections: (The following items were deleted from the chart) 02/05 16:00 15:44 02/06/2020 15:44 Discharged to Home. Impression: Dorsalgia. Condition is Stable. aa5 Prescriptions for Lidoderm 5 % Topical adhesive patch,medicated - apply 1 patch by TRANSDERMAL route once daily; 1 box, Ibuprofen 800 mg Oral Tablet - take 1 tablet by ORAL route every 8 hours As needed take with food; 30 tablet, Tylenol-Codeine #3 300-30 mg Oral Tablet - take 2 tablets by ORAL route every 8-12 hours As needed; 12 tablet, Baclofen 10 mg Oral Tablet - take 1 tablet by ORAL route 3 times per day; 20 tablet. and Forms are Medication Reconciliation Form, Thank You Letter, Antibiotic Education, Prescription Opioid Use. Follow up: Private Physician; When: 1 - 2 days; Reason: Recheck today's complaints. Problem is new. Symptoms have improved. cp 02/06 15:02/05 16:00 Constitutional: Negative for body aches, chills, fever, poor PO intake, cp cp 02/06 15:02/05 16:00 Cardiovascular: Negative for chest pain, edema, palpitations, cp cp 02/06 15:02/05 16:00 Respiratory: Negative for cough, shortness of breath, wheezing, cp cp 02/06 15:02/05 16:00 Abdomen/GI: Negative for abdominal pain, nausea, vomiting, and diarrhea, cp constipation, bowel incontinence, cp 02/06 15:02/05 16:00 Eyes: Negative for injury, pain, redness, and discharge, cp cp 02/06 15:21 02/05 16:00 Neuro: Negative for altered mental status, headache, syncope, weakness, cp cp 02/06 15:02/05 16:00 Back: Positive for pain at rest, pain with movement, cp cp 02/06 15:02/05 16:00 All other systems are negative, cp cp 02/06 15:21 02/05 16:00 : Negative for urinary symptoms, difficulty urinating, cp cp
--- NOTE | 2020-02-06 15:44 | ER ---
Nurse's Notes [facility] Name: Nicolle Crenshaw Age: 49 yrs Sex: Female : 1970 Arrival Date: 02/06/2020 Time: 11:55 Bed 27 Private MD: Diagnosis: Dorsalgia Presentation: 02/05 13:03 Chief complaint: Patient states: climbed up a 7 or 8 foot ladder and as she was coming iw down she felt pain though her spine and into her ribs , has pain to mid back down and all in her ribs, took a 750 mg robaxin at 1120 , pt did not fall, but strained as she came down the ladder , pain 8/10. Coronavirus screen: At this time, the client does not indicate any symptoms associated with coronavirus-19. Ebola Screen: Patient negative for fever greater than or equal to 101.5 degrees Fahrenheit, and additional compatible Ebola Virus Disease symptoms Patient denies exposure to infectious person. Patient denies travel to an Ebola-affected area in the 21 days before illness onset. No symptoms or risks identified at this time. Initial Sepsis Screen: Does the patient meet any 2 criteria? No. Patient's initial sepsis screen is negative. Does the patient have a suspected source of infection? No. Patient's initial sepsis screen is negative. Risk Assessment: Do you want to hurt yourself or someone else? Patient reports no desire to harm self or others. Onset of symptoms was February 06, 2020. 13:03 Method Of Arrival: Wheelchair iw 13:03 Acuity: BRENDON 3 iw Historical: - Allergies: 13:06 Levofloxacin; iw 13:06 Fentanyl; iw - PMHx: 13:06 Anxiety; Back pain; Depression; PTSD; iw - PSHx: 13:06 ; Cholecystectomy; iw - Immunization history:: Adult Immunizations unknown. - Social history:: Smoking status: Patient reports the use of cigarette tobacco products. Screenin:27 Abuse screen: Denies threats or abuse. Denies injuries from another. Nutritional jl7 screening: No deficits noted. Tuberculosis screening: No symptoms or risk factors identified. Fall Risk None identified. Assessment: 13:45 General: Appears in no apparent distress. uncomfortable, Behavior is calm, cooperative, jl7 appropriate for age. Pain: Complains of pain in back Pain currently is 8 out of 10 on a pain scale. Neuro: Level of Consciousness is awake, alert, obeys commands, Oriented to person, place, time, situation. Cardiovascular: Patient's skin is warm and dry. Respiratory: Airway is patent Respiratory effort is even, unlabored, Respiratory pattern is regular, symmetrical. Derm: Skin is pink, warm \T\ dry. Musculoskeletal: Reports pain in back. 15:58 Reassessment: Patient is alert, oriented x 3, equal unlabored respirations, skin aa5 warm/dry/pink. Vital Signs: 13:03 BP 125 / 73; Pulse 71; Resp 16; Temp 98.3; Pulse Ox 100% on R/A; Weight 83.91 kg; iw Height 5 ft. 4 in. (162.56 cm); Pain 8/10; 14:27 BP 136 / 93; Pulse 76; Resp 17; Pulse Ox 100% ; Pain 8/10; jl7 13:03 Body Mass Index 31.75 (83.91 kg, 162.56 cm) iw ED Course: 11:55 Patient arrived in ED. rg4 13:05 Triage completed. iw 13:42 Trent Jeffries, AMADEO is Primary Nurse. jl7 13:47 Julio Delgadillo PA is PHCP. cp 13:48 Cade Hammond MD is Attending Physician. cp 14:27 Patient has correct armband on for positive identification. Bed in low position. Call jl7 light in reach. Side rails up X 1. Pulse ox on. NIBP on. 15:59 No provider procedures requiring assistance completed. Patient did not have IV access aa5 during this emergency room visit. Administered Medications: 14:28 Drug: TORadol 60 mg Route: IM; Site: right deltoid; jl7 15:59 Follow up: Response: No adverse reaction; Pain is decreased aa5 14:28 Drug: morphine 4 mg Route: IM; Site: left deltoid; jl7 15:59 Follow up: Response: No adverse reaction; Pain is decreased aa5 Outcome: 15:44 Discharge ordered by . cp 15:59 Discharged to home via wheelchair, with significant other. aa5 15:59 Condition: improved 15:59 Discharge instructions given to patient, Instructed on discharge instructions, follow up and referral plans. medication usage, Demonstrated understanding of instructions, follow-up care, medications, Prescriptions given X 4. 16:00 Patient left the ED. aa5 Signatures: Yana Amador, RN RN iw Tona Lucio RN RN aa5 Julio Delgadillo PA PA cp Garcia, Rubi rg4 Trent Jeffries RN RN jl7
[2020-02-11 18:41] VITALS: TEMP 98.3; O2SAT 100
[2020-02-11 18:43] VITALS: BP 136/93
== END 2020-02-06 16:00 | disposition home or self-care (01) ==
LOC: ER 11:54
DX: M54.9 Dorsalgia, unspecified (principal); Z72.0 Tobacco use; Z88.1 Allergy status to other antibiotic agents; Z88.5 Allergy status to narcotic agent
CPT/HCPCS: 93005; 96372; 99283

== ENCOUNTER 2020-03-12 13:22 | Emergency (ER) | payer SELFPAY ==
--- OUTSIDE RECORDS SUMMARY | 2020-03-12 13:24 | XMS REPORT | Continuity of Care Document ---
:1970 Author Organization [facility] t Address [address] [place] [address] Care Team Providers Name Role Phone Liza Wilson MD Attending Clinician Pob1, [facility] Attending Clinician Unavailable Pcp, Does Not Have A Attending Clinician Problems This patient has no known problems. Allergies, Adverse Reactions, Alerts This patient has no known allergies or adverse reactions. Medications This patient has no known medications. Procedures This patient has no known procedures. Encounters Start End Encounter Admission Attending Care Care Encounter Source Date/Time Date/Time Type Type Clinicians Facility Department ID 2019-06-07 2019-06-07 Telephone Katie BLACKWELL [id number] 00:00:00 00:00:00 , Heather LICONA [id number] [facility] [id number] 2019-06-06 2019-06-06 Urgent Pob1, Acute [facility] [id number] 10:20:40 10:40:40 [facility] [id number] [place] [id number] [place] [id number] [address] 2019-06-05 2019-06-05 Nurse PcpROSALVA [id number] 00:00:00 00:00:00 Triage Patient MONAE [id number] Does [facility] [id number] Have A [id number] Results This patient has no known results.
[2020-03-12 13:51] LABS: Basophils % 0.9 % (0-1.3); Hematocrit 46.7 % (36.0-45.0); Lymphocytes % 30.5 % (15.3-44.8); MPV 8.9 fL (7.6-11.3); RBC Red Blood Cell Count 5.25 M/uL (3.86-4.86)
[2020-03-12] MEDS ORDERED: LORazepam 2 MG/ML VIAL ONE ×2 (13:52→14:00)
[2020-03-12 13:55] LABS: Protime INR 0.91
[2020-03-12] MEDS ORDERED: PROMETHAZINE INJ 25 MG/ML AMP ONE (14:30)
[2020-03-12] MEDS ORDERED: NA CHLORIDE 0.9% 1,000 ML ONE (14:31)
[2020-03-12] MEDS ORDERED: MORPHINE 4 MG/ML SYR ONE (14:31)
[2020-03-12 14:32] LABS: ALT/SGPT 39 U/L (12-78); AST/SGOT 22 U/L (15-37); Albumin 4.4 g/dL (3.4-5.0); Alkaline Phosphatase 104 U/L (45-117); BUN Blood Urea Nitrogen 15 mg/dL (7-18); Bicarbonate 26 mmol/L (21-32); Bilirubin Direct < 0.1 mg/dL (0-0.2); Bilirubin Total 0.4 mg/dL (0.2-1.0); Glucose Level 107 mg/dL (74-106); Potassium 4.3 mmol/L (3.5-5.1); Protein, Total 7.9 g/dL (6.4-8.2); Sodium Level 144 mmol/L (136-145)
[2020-03-12] MEDS ORDERED: KETOROLAC 30 MG/ML INJ ONE (15:06)
[2020-03-12 15:23] LABS: Barbiturates NEGATIVE (NEGATIVE); Benzodiazepines NEGATIVE (NEGATIVE); Cocaine NEGATIVE (NEGATIVE); METHAMPHETAM NEGATIVE (NEGATIVE); Methadone NEGATIVE (NEGATIVE); Opiates POSITIVE (NEGATIVE); Phencyclidine NEGATIVE (NEGATIVE); THC Cannibis NEGATIVE (NEGATIVE)
--- NOTE | 2020-03-12 15:50 | ER ---
Nurse's Notes [facility] Name: Nicolle Crenshaw Age: 49 yrs Sex: Female : 1970 Arrival Date: 03/12/2020 Time: 13:23 Bed 3 Private MD: Diagnosis: Epileptic seizures related to external causes;Panic disorder [episodic paroxysmal anxiety] without agoraphobia Presentation: 03/12 13:27 Chief complaint: Patient states: I have panic attack for a while now but this shaking ca1 just came out of nowhere.. Pt shaking, A\\T\\Ox4. Coronavirus screen: Client denies travel out of the [place] in the last 14 days. At this time, the client does not indicate any symptoms associated with coronavirus-19. Ebola Screen: Patient negative for fever greater than or equal to 101.5 degrees Fahrenheit, and additional compatible Ebola Virus Disease symptoms Patient denies exposure to infectious person. Patient denies travel to an Ebola-affected area in the 21 days before illness onset. No symptoms or risks identified at this time. Initial Sepsis Screen: Does the patient meet any 2 criteria? No. Patient's initial sepsis screen is negative. Does the patient have a suspected source of infection? No. Patient's initial sepsis screen is negative. Risk Assessment: Do you want to hurt yourself or someone else? Patient reports no desire to harm self or others. Onset of symptoms was March 12, 2020. 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 - Social history:: Smoking status: Patient reports the use of cigarette tobacco products, smokes one-half pack cigarettes per day. Screenin:30 Abuse screen: Denies threats or abuse. Denies injuries from another. Nutritional jl7 screening: No deficits noted. Tuberculosis screening: No symptoms or risk factors identified. Fall Risk Secondary diagnosis (15 points) seizures, IV access (20 points). Total Villarreal Fall Scale indicates Low Risk Score (25-44 pts). Fall prevention measures have been instituted. Side Rails Up X 2 Placed close to Nursing Station Frequent Obs/Assesments occuring As available Patient and Family Educated on Fall Prevention Program and strategies. Assessment: 13:30 General: Appears in no apparent distress. Behavior is anxious. Pain: Complains of pain jl7 in back Pain currently is 9 out of 10 on a pain scale. Neuro: Level of Consciousness is awake, alert, obeys commands, Oriented to person, place, time, situation, Seizure activity pt's body appears to be shaking while pt is transferring to stretcher from wheelchair, pt states "I'm having an anxiety seizure." VS WNL. Cardiovascular: Patient's skin is warm and dry. Rhythm is sinus tachycardia. Respiratory: Airway is patent Respiratory effort is even, unlabored, Respiratory pattern is regular, symmetrical. Derm: Skin is pink, warm \\T\\ dry. 13:43 Reassessment: Medicated pt with Ativan as ordered, pt's body appears to continue to jl7 shake, pt states "Did you give me anything?" Informed pt Ativan was administered. ERP notified of pt status, see MAR for orders. 14:13 Reassessment: Pt's body appears to be slightly shaking from the shoulders up, pt states jl7 "I still have just this little bit of shaking left." Pt reports back pain and requests pain meds, ERP notified, see MAR for orders. 14:50 Reassessment: Pt's body does not appear to be shaking, pt reports improvement in jl7 symptoms, pt reports no change in back pain, states "They normally give me Morphine and Toradol." ERP notified, see MAR for orders. 15:00 Reassessment: Reassessed back pain after administration of Toradol as ordered, Pt jl7 states "I can't feel it." Educated pt that Toradol is not something she will feel in her head but more at the pain site. Pt states "Oh." Informed pt I will reassess in a few minutes to ensure pain is better. 15:05 Reassessment: Pt reports improvement in symptoms, able to transfer to wheelchair and go jl7 to bathroom to collect urine. 16:10 Reassessment: Pt reports "I still have a little pain so can you discharge me after jl7 another dose of pain medication?" ERP notified, see MAR for orders. Vital Signs: 13:36 Pulse 129; Resp 20; Temp 98.6(O); Pulse Ox 98% on R/A; Weight 83.91 kg (R); Height 5 ca1 ft. 4 in. (162.56 cm); 14:25 BP 140 / 99; Pulse 80; Resp 18; Pulse Ox 98% ; jl7 15:25 BP 137 / 73; Pulse 77; Resp 15; Pulse Ox 100% ; jl7 16:15 BP 120 / 75; Pulse 75; Resp 15; Pulse Ox 100% ; jl7 13:36 Body Mass Index 31.75 (83.91 kg, 162.56 cm) ca1 Lyons Coma Score: 13:35 Eye Response: spontaneous(4). Verbal Response: oriented(5). Motor Response: obeys ca1 commands(6). Total: 15. ED Course: 13:23 Patient arrived in ED. as 13:25 Trent Jeffries RN is Primary Nurse. [facility] 13:28 Venkata Roa PA is PHCP. [facility] 13:28 Cade Hammond MD is Attending Physician. [facility] 13:30 Patient has correct armband on for positive identification. Bed in low position. Call [facility] light in reach. Side rails up X2. Seizure precautions initiated. phototypesetting equipment monitor on. Pulse ox on. NIBP on. 13:30 Initial lab(s) drawn, by me, sent to lab. Inserted saline lock: 18 gauge in right jl7 antecubital area, using aseptic technique. Blood collected. 13:35 Triage completed. ca1 13:35 Arm band placed on right wrist. ca1 15:00 Urine collected: clean catch specimen, clear. jl7 15:07 EKG done, by ED staff, reviewed by Venkata GAN. 3 15:49 Ernesto Trejo MD is Referral Physician. [facility] 16:22 No provider procedures requiring assistance completed. IV discontinued, intact, jl7 bleeding controlled, No redness/swelling at site. Pressure dressing applied. Administered Medications: 13:39 Drug: Ativan 1 mg Route: IVP; Site: right antecubital; 7 14:43 Follow up: Response: No change in condition [facility] 13:47 Drug: Ativan 1 mg Route: IVP; Site: right antecubital; jl7 14:00 Follow up: Response: No adverse reaction; Marked relief of symptoms jl7 14:24 Drug: NS 0.9% 1000 ml Route: IV; Rate: 1 bolus; Site: right antecubital; jl7 15:30 Follow up: Response: No adverse reaction; IV Status: Completed infusion; IV Intake: jl7 1000ml 15:39 Follow up: Response: No adverse reaction; IV Intake: 1000ml jl7 14:24 Drug: morphine 4 mg Route: IVP; Site: right antecubital; jl7 14:50 Follow up: Response: No adverse reaction; Pain is unchanged, physician notified jl7 14:24 Drug: Promethazine 12.5 mg Route: IVP; Site: right antecubital; jl7 15:39 Follow up: Response: No adverse reaction 7 14:55 Drug: Ketorolac 30 mg Route: IVP; Site: right antecubital; jl7 15:25 Follow up: Response: No adverse reaction jl7 16:15 Drug: morphine 2 mg Route: IVP; Site: right antecubital; jl7 16:21 Follow up: Response: Medication administered at discharge. 7 Intake: 15:30 IV: 1000ml; Total: 1000ml. jl7 15:39 IV: 1000ml; Total: 2000ml. 7 Outcome: 15:50 Discharge ordered by . [facility] 16:22 Discharged to home via wheelchair, with family. 7 16:22 Condition: stable 16:22 Discharge instructions given to patient, Instructed on discharge instructions, follow up and referral plans. medication usage, Demonstrated understanding of instructions, follow-up care, medications, Prescriptions given X 3. 16:22 Patient left the ED. [facility] Signatures: Venkata Roa PA PA jmm Martinez, Amelia as Leal, Jahala, RN RN jl7 Noa Sahu [facility] RN RN ca1 Corrections: (The following items were deleted from the chart) 13:39 13:27 Chief complaint: Patient states: I have panic attack for a while now but this ca1 shaking just came out of nowhere. Pt shaking, A\\T\\Ox4. ca1
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
[2020-03-12] MEDS ORDERED: MORPHINE 2 MG/ML SYR ONE (16:24)
[2020-03-12 16:28] VITALS: TEMP 98.6
[2020-03-12 16:30] VITALS: O2SAT 100
[2020-03-12 16:31] VITALS: BP 120/75
--- NOTE | 2020-03-13 06:19 | EKG ---
Test Date: 2020-03-12 Test Time: 15:07:58 Proj Engineer: AZUL MEASUREMENT RESULTS: Intervals: Rate: 74 AK: 152 QRSD: 64 QT: 394 QTc: 437 [place]: P: 59 AK: 152 QRS: 12 T: 35 INTERPRETIVE STATEMENTS: Normal sinus rhythm Normal ECG Compared to ECG 02/06/2020 15:38:24 No significant changes Electronically Signed On 03-13-20 06:18:04 YOUTH AGENT by Eduardo Ruelas
== END 2020-03-12 16:22 | disposition home or self-care (01) ==
LOC: ER 13:22
DX: F41.0 Panic disorder [episodic paroxysmal anxiety] (principal); F17.210 Nicotine dependence, cigarettes, uncomplicated; Z88.3 Allergy status to other anti-infective agents; Z88.5 Allergy status to narcotic agent
CPT/HCPCS: 36415; 80048; 80076; 80307; 80320; 80329; 85025; 85610; 85730; 93005; 96361; 96374; 96375; 99284; J2270; J2550; J7030

== ENCOUNTER 2020-04-18 07:51 | Emergency (ER) | payer SELFPAY ==
--- OUTSIDE RECORDS SUMMARY | 2020-04-18 07:53 | XMS REPORT | Continuity of Care Document ---
:1970 Author Organization [facility] t Address [address] [place] [address] Care Team Providers Name Role Phone Negrita Sanchez Attending Clinician Doctor Unassigned, Name Attending Clinician Unavailable Liza Wilson MD Attending Clinician Pob1, Care Clinic Attending Clinician Unavailable Pcp, Does Not Have A Attending Clinician Problems This patient has no known problems. Allergies, Adverse Reactions, Alerts This patient has no known allergies or adverse reactions. Medications This patient has no known medications. Procedures This patient has no known procedures. Encounters Start End Encounter Admission Attending Care Care Encounter Source Date/Time Date/Time Type Type Clinicians Facility Department ID 2020-03-26 2020-03-26 Emergency Annette Clements [facility] 1.2.840.114 [id number] 13:03:00 15:21:00 Negritaalonso Barkley [id number] [place] [id number] [place] [id number] 2020-03-26 2020-03-26 Orders Doctor BLACKWELL 1.2.840.114 [id number] 00:00:00 00:00:00 Only UnassignedMONAE [id number] [place] [facility] [id number] 2019-06-07 2019-06-07 Telephone Katie BLACWKELL [id number] 00:00:00 00:00:00 , Heather LICONA [id number] M [facility] [id number] 2019-06-06 2019-06-06 Urgent Pob1, Acute [place] [id number] 10:20:40 10:40:40 [facility] [id number] [place] [id number] [place] [phone] nal [address] 2019-06-05 2019-06-05 Nurse PcpROSALVA [id number] 00:00:00 00:00:00 Triage Patient MONAE [id number] Does Not [facility] [id number] Have A [id number] Results This patient has no known results.
--- NOTE | 2020-04-18 08:18 | ER ---
Nurse's Notes [facility] Name: Nicolle Crenshaw Age: 49 yrs Sex: Female : 1970 Arrival Date: 04/18/2020 Time: 07:54 Bed 8 Private MD: Diagnosis: Cutaneous abscess of abdominal wall Presentation: 04/18 08:09 Chief complaint: Patient states: was seen at [facility] clinic and prescribed abx for an iw abscess on her lower abdomen, states it is spreading and looks discolored now, also is having back spasms. Coronavirus screen: At this time, the client does not indicate any symptoms associated with coronavirus-19. Ebola Screen: Patient negative for fever greater than or equal to 101.5 degrees Fahrenheit, and additional compatible Ebola Virus Disease symptoms Patient denies exposure to infectious person. Patient denies travel to an Ebola-affected area in the 21 days before illness onset. No symptoms or risks identified at this time. Initial Sepsis Screen: Does the patient meet any 2 criteria? No. Patient's initial sepsis screen is negative. Does the patient have a suspected source of infection? No. Patient's initial sepsis screen is negative. Risk Assessment: Do you want to hurt yourself or someone else? Patient reports no desire to harm self or others. Onset of symptoms was April 16, 2020. 08:09 Method Of Arrival: Ambulatory iw 08:09 Acuity: BRENDON 4 iw Historical: - Allergies: 08:12 Fentanyl; iw 08:12 Levofloxacin; iw - Home Meds: 08:12 clonazepam 2 mg Oral tab 1 tab 2 times per day [Active]; duloxetine 60 mg oral cpDR 1 iw cap once daily [Active]; Robaxin oral [Active]; - PMHx: 08:12 Anxiety; Back pain; Depression; PTSD; iw - PSHx: 08:12 Cholecystectomy; ; iw - Immunization history:: Adult Immunizations unknown. - Family history:: not pertinent. - Social history:: Smoking status: unknown. - Hospitalizations: : No recent hospitalization is reported. Screenin:20 Abuse screen: Denies threats or abuse. Denies injuries from another. Nutritional jl7 screening: No deficits noted. Tuberculosis screening: No symptoms or risk factors identified. Fall Risk None identified. Assessment: 08:20 General: Appears in no apparent distress. uncomfortable, Behavior is calm, cooperative, jl7 appropriate for age. Pain: Complains of pain in abdomen. Neuro: Level of Consciousness is awake, alert, obeys commands, Oriented to person, place, time, situation. Cardiovascular: Patient's skin is warm and dry. Respiratory: Airway is patent Respiratory effort is even, unlabored, Respiratory pattern is regular, symmetrical. Derm: Skin is pink, warm \T\ dry. Abscess located on abdomen is half dollar sized, has purulent drainage, is hot to touch, is red, is raised. Vital Signs: 08:09 BP 114 / 69; Pulse 87; Resp 16; Pulse Ox 100% on R/A; iw ED Course: 07:54 Patient arrived in ED. as 07:56 Marcus Lobo MD is Attending Physician. rn 08:11 Triage completed. iw 08:12 Arm band placed on. iw 08:20 Patient has correct armband on for positive identification. Bed in low position. Call jl7 light in reach. Side rails up X 1. Pulse ox on. NIBP on. 08:22 Assist provider with I \T\ D: of an abscess on abdomen Set up I\T\D tray. Performed by tatyana 3 Marcus Lobo MD Dressing with 4X4s, Patient tolerated well. 08:39 Trent Jeffries RN is Primary Nurse. jl7 08:40 Patient did not have IV access during this emergency room visit. jl7 Administered Medications: 08:25 Drug: Lidocaine (1 %) 1 application Volume: 20 ml; Route: Infiltration; jl7 08:40 Follow up: Response: No adverse reaction jl7 Outcome: 08:18 Discharge ordered by . rn 08:40 Discharged to home ambulatory. jl7 08:40 Condition: stable 08:40 Discharge instructions given to patient, Instructed on discharge instructions, follow up and referral plans. Demonstrated understanding of instructions, follow-up care. 08:42 Patient left the ED. jl7 Signatures: Carisa Hernandez Irene, AMADEO CHILDS iw Marcus Lobo MD MD rn Leal, Jahala, RN RN jl7 Randall Zarate RN RN jd3
--- NOTE | 2020-04-18 08:19 | EDPHYS ---
Physician Documentation [facility] Name: Nicolle Crenshaw Age: 49 yrs Sex: Female : 1970 Arrival Date: 04/18/2020 Time: 07:54 Bed 8 Private MD: ED Physician Marcus Lobo HPI: 04/18 08:14 This 49 yrs old Female presents to ER via Ambulatory with complaints of rn Abscess. 08:14 The patient presents with an abscess of the abdomen. Onset: The symptoms/episode rn began/occurred 2 day(s) ago. Possible cause(s): unknown. Associated signs and symptoms: Pertinent positives: erythema, swelling. Modifying factors: the symptoms are alleviated by nothing, the symptoms are aggravated by pressure, touching. Severity of symptoms: At their worst the symptoms were mild, in the emergency department the symptoms are unchanged. The patient has not experienced similar symptoms in the past. Reports 2 days of swelling to lower abdomen, unknown if bite, reports on abx for 2 days, not getting better. . Historical: - Allergies: 08:12 Fentanyl; iw 08:12 Levofloxacin; iw - Home Meds: 08:12 clonazepam 2 mg Oral tab 1 tab 2 times per day [Active]; duloxetine 60 mg oral cpDR 1 iw cap once daily [Active]; Robaxin oral [Active]; - PMHx: 08:12 Anxiety; Back pain; Depression; PTSD; iw - PSHx: 08:12 Cholecystectomy; ; iw - Immunization history:: Adult Immunizations unknown. - Family history:: not pertinent. - Social history:: Smoking status: unknown. - Hospitalizations: : No recent hospitalization is reported. ROS: 08:14 Constitutional: Negative for fever, chills, and weight loss, Skin: + redness and rn swelling to lower abdomen Exam: 08:14 Constitutional: This is a well developed, well nourished patient who is awake, alert, rn and in no acute distress. Ambulatory to room without difficulty Abdomen/GI: soft, small 1cm diameter area of erythema and fluctuance lower abdomen along waistline, no necrosis. Vital Signs: 08:09 BP 114 / 69; Pulse 87; Resp 16; Pulse Ox 100% on R/A; iw Procedures: 08:14 I \T\ D: Incision and drainage was performed for an abscess of the lower abdomen, midline rn Prepped with Betadine, Anesthetized with 3 ml's 1% Lidocaine. Incised with #11 blade. Drained small amount purulent fluid. serosanguinous fluid. Packed with iodoform gauze, Dressing: sterile 4x4 gauze, the patient tolerated the procedure well. MDM: 07:56 Patient medically screened. rn 08:14 Differential diagnosis: abscess, cellulitis. Differential diagnosis: insect bite. Data rn reviewed: vital signs, nurses notes, and as a result, I will discharge patient. Counseling: I had a detailed discussion with the patient and/or guardian regarding: the historical points, exam findings, and any diagnostic results supporting the discharge/admit diagnosis, the need for outpatient follow up, to return to the emergency department if symptoms worsen or persist or if there are any questions or concerns that arise at home. Special discussion: I discussed with the patient/guardian in detail that at this point there is no indication for admission to the hospital. It is understood, however, that if the symptoms persist or worsen the patient needs to return immediately for re-evaluation. 04/18 08:42 Order name: I\T\D Setup; Complete Time: 08:42 7 Administered Medications: 08:25 Drug: Lidocaine (1 %) 1 application Volume: 20 ml; Route: Infiltration; [facility] 08:40 Follow up: Response: No adverse reaction jl7 Disposition: 04/18/20 08:18 Discharged to Home. Impression: Cutaneous abscess of abdominal wall. - Condition is Stable. - Discharge Instructions: Skin Abscess, Incision and Drainage. - Medication Reconciliation Form, Thank You Letter, Antibiotic Education, Prescription Opioid Use form. - Follow up: Private Physician; When: As needed; Reason: Recheck today's complaints, Re-evaluation by your physician. - Problem is new. - Symptoms have improved. Signatures: Yana Amador RN RN iw Nieto, Roman, MD MD rn Leal, Jahala, RN RN jl7 Corrections: (The following items were deleted from the chart) 08:42 08:18 04/18/2020 08:18 Discharged to Home. Impression: Cutaneous abscess of abdominal jl7 wall. Condition is Stable. Forms are Medication Reconciliation Form, Thank You Letter, Antibiotic Education, Prescription Opioid Use. Follow up: Private Physician; When: As needed; Reason: Recheck today's complaints, Re-evaluation by your physician. Problem is new. Symptoms have improved. rn
[2020-04-18] MEDS ORDERED: LIDOCAINE 1% 20 ML MDV ONE (08:32)
[2020-04-18 08:50] VITALS: BP 114/69; O2SAT 100
== END 2020-04-18 08:42 | disposition home or self-care (01) ==
LOC: ER 07:51
PROC: 0J980ZZ Drainage of Abdomen Subcutaneous Tissue and Fascia, Open Approach (ICD-10-PCS; principal; 2020-04-18)
DX: L02.211 Cutaneous abscess of abdominal wall (principal); F41.8 Other specified anxiety disorders; Z88.1 Allergy status to other antibiotic agents; Z88.5 Allergy status to narcotic agent
CPT/HCPCS: 99283

== ENCOUNTER 2020-04-20 08:48 | Emergency (ER) | payer SELFPAY ==
--- OUTSIDE RECORDS SUMMARY | 2020-04-20 08:51 | XMS REPORT | Continuity of Care Document ---
:1970 Author Organization [facility] t Address [address] [place] [address] Care Team Providers Name Role Phone Negrita [...] Department ID 2020-03-26 2020-03-26 Emergency Annette Clements [facility] 1.2.840.114 [id number] 13:03:00 15:21:00 Negritaalonso Barkley [id number] [place] [id number] [place] [id number] 2020-03-26 2020-03-26 Orders Doctor BLACKWELL 1.2.840.114 [id number] 00:00:00 00:00:00 Only UnassignedMONAE [id number] [place] [facility] [id number] 2019-06-07 2019-06-07 Telephone Katie BLACKWELL 1.2.840.114 [id number] 00:00:00 00:00:00 , Heather LICONA [id number] M [facility] [id number] 2019-06-06 2019-06-06 Urgent Pob1, Acute [place] 1.2.840.114 [id number] 10:20:40 10:40:40 [facility] [id number] [place] [id number] [place] [phone] nal 0[address] 2019-06-05 2019-06-05 Nurse PcpROSALVA 1.2.840.114 [id number] 00:00:00 00:00:00 Triage Patient MONAE [id number] Does Not [facility] [id number] Have A [id number] Results This patient has no known results.
[2020-04-20] MEDS ORDERED: LIDOCAINE JELLY 2%- 5 ML TUBE ONE (11:15)
--- NOTE | 2020-04-20 11:40 | ER ---
Nurse's Notes [facility] Name: Nicolle Crenshaw Age: 49 yrs Sex: Female : 1970 Arrival Date: 04/20/2020 Time: 08:51 Bed 26 Private MD: Diagnosis: Encounter for change or removal of surgical wound dressing Presentation: 04/20 09:04 Chief complaint: Patient states: had an abscess lanced on Monday , took packing out iw and last night she squeezed more pus out of the incision site, is worried that the infection is getting worse. Coronavirus screen: At this time, the client does not indicate any symptoms associated with coronavirus-19. Ebola Screen: Patient negative for fever greater than or equal to 101.5 degrees Fahrenheit, and additional compatible Ebola Virus Disease symptoms Patient denies exposure to infectious person. Patient denies travel to an Ebola-affected area in the 21 days before illness onset. No symptoms or risks identified at this time. Initial Sepsis Screen: Does the patient meet any 2 criteria? No. Patient's initial sepsis screen is negative. Does the patient have a suspected source of infection? No. Patient's initial sepsis screen is negative. Risk Assessment: Do you want to hurt yourself or someone else? Patient reports no desire to harm self or others. Onset of symptoms was April 18, 2020. 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 - Social history:: Smoking status: Patient reports the use of cigarette tobacco products. Screenin:48 Abuse screen: Denies threats or abuse. Nutritional screening: No deficits noted. ll1 Tuberculosis screening: No symptoms or risk factors identified. Fall Risk None identified. Total Villarreal Fall Scale indicates No Risk (0-24 pts). Assessment: 11:47 Reassessment: No changes from previously documented assessment. Patient and/or family ll1 updated on plan of care and expected duration. Pain level reassessed. Patient is alert, oriented x 3, equal unlabored respirations, skin warm/dry/pink. General: Appears in no apparent distress. Behavior is calm, cooperative, appropriate for age. Pain: Denies pain. Derm: Reports Re-packed abdominal abscess wound by Sunny Delgadillo. Vital Signs: 09:04 BP 120 / 71; Pulse 84; Resp 16; Temp 97.9; Pulse Ox 100% on R/A; Weight 86.18 kg; iw Height 5 ft. 4 in. (162.56 cm); 09:04 Body Mass Index 32.61 (86.18 kg, 162.56 cm) iw ED Course: 08:51 Patient arrived in ED. ds1 09:05 Triage completed. iw 09:06 Arm band placed on. iw 10:41 Julio Delgadillo PA is PHCP. cp 10:41 Marcus Lobo MD is Attending Physician. cp 10:45 Gary Bose, AMADEO is Primary Nurse. ll1 11:39 Amado Wang MD is Referral Physician. cp 11:49 Patient has correct armband on for positive identification. Bed in low position. Call ll1 light in reach. 11:49 No provider procedures requiring assistance completed. Patient did not have IV access ll1 during this emergency room visit. Administered Medications: No medications were administered Outcome: 11:39 Discharge ordered by MD. cp 11:49 Discharged to home ambulatory. ll1 11:49 Condition: stable 11:49 Discharge instructions given to patient, Instructed on discharge instructions, follow up and referral plans. Demonstrated understanding of instructions, follow-up care, wound care. 11:49 Patient left the ED. ll1 Signatures: Kiara Ocampo ds1 Yana Amador RN RN Julio Delgadillo PA PA cp Gary Bose RN RN ll1
--- NOTE | 2020-04-20 11:40 | EDPHYS ---
Physician Documentation [facility] Name: Nicolle Crenshaw Age: 49 yrs Sex: Female : 1970 Arrival Date: 04/20/2020 Time: 08:51 Bed 26 Private MD: ED Physician Marcus Lobo HPI: 04/20 10:55 This 49 yrs old Female presents to ER via Ambulatory with complaints of Staph cp Infection Re-Check. 10:55 Patient presents to ED for recheck of: abscess. cp 10:55 The affected area is on the mid lower abdomen. Previous treatment: The patient was cp initially treated 2 day(s) ago, the care was rendered at [facility], Treatment type: The patient's original treatment included an I\T\D, packing. Patient concerned because she was able to express some drainage and packing came out yesterday. [employer]: 11:49 LMP N/A - control method ll1 Historical: - Allergies: 09:06 Fentanyl; iw 09:06 Levofloxacin; iw - Home Meds: 09:06 clonazepam 2 mg Oral tab 1 tab 2 times per day [Active]; Cymbalta 30 mg Oral cpDR 1 cap iw 2 times per day [Active]; duloxetine 60 mg Oral cpDR 1 cap once daily [Active]; - PMHx: 09:06 Anxiety; Back pain; Depression; PTSD; iw - PSHx: 09:06 Cholecystectomy; ; iw - Immunization history:: Adult Immunizations. - Social history:: Smoking status: Patient reports the use of cigarette tobacco products. ROS: 11:00 Constitutional: Negative for body aches, chills, fever. cp 11:00 All other systems are negative. Exam: 11:05 Constitutional: The patient appears in no acute distress, alert, awake, non-toxic, well cp developed, well nourished. 11:05 Abdomen/GI: Inspection: minimal erythema and swelling noted around incision, packing cp removed prior to exam, no drainage expressed. 11:05 Skin: Wound recheck: Abscess: the wound has improved, decreased discharge, decreased erythema, decreased swelling. Vital Signs: 09:04 BP 120 / 71; Pulse 84; Resp 16; Temp 97.9; Pulse Ox 100% on R/A; Weight 86.18 kg; iw Height 5 ft. 4 in. (162.56 cm); 09:04 Body Mass Index 32.61 (86.18 kg, 162.56 cm) MDM: 10:46 Patient medically screened. cp 11:35 Data reviewed: vital signs, nurses notes. cp 11:35 Counseling: I had a detailed discussion with the patient and/or guardian regarding: the cp historical points, exam findings, and any diagnostic results supporting the discharge/admit diagnosis, to return to the emergency department if symptoms worsen or persist or if there are any questions or concerns that arise at home. ED course: VSS. Packing replaced with instructions to keep in place next 2 days. Return to Ed worsening symptoms. Administered Medications: No medications were administered Disposition: 12:00 Chart complete. cp 16:58 Co-signature as Attending Physician, Marcus Lobo MD. rn Disposition: 04/20/20 11:39 Discharged to Home. Impression: Encounter for change or removal of surgical wound dressing. - Condition is Stable. - Discharge Instructions: Wound Care, Incision and Drainage, Care After. - Medication Reconciliation Form, Thank You Letter, Antibiotic Education, Prescription Opioid Use form. - Follow up: Amado Wang MD; When: 1 - 2 days; Reason: Worsening of condition. - Problem is new. - Symptoms have improved. Signatures: Yana Amador RN RN Marcus Lobo MD MD rn Page, Corey, PA PA Gary Bose RN RN ll1 Corrections: (The following items were deleted from the chart) 11:49 11:39 04/20/2020 11:39 Discharged to Home. Impression: Encounter for change or removal ll1 of surgical wound dressing. Condition is Stable. Forms are Medication Reconciliation Form, Thank You Letter, Antibiotic Education, Prescription Opioid Use. Follow up: Amado Wang; When: 1 - 2 days; Reason: Worsening of condition. Problem is new. Symptoms have improved. cp 04/21 07:39 04/20 10:55 Previous treatment: The patient was initially treated 2 day(s) ago, the cp care was rendered at [facility], Treatment type: The patient's original treatment included an I\T\D, packing, Outpatient prescription(s): The patient was given prescription(s) for oral antibiotics, cp 04/21 07:39 04/20 10:55 Patient concerned because she was able to express some drainage today and cp packing came out. cp
[2020-04-20 11:58] VITALS: BP 120/71; TEMP 97.9; O2SAT 100
== END 2020-04-20 11:49 | disposition home or self-care (01) ==
LOC: ER 08:48
DX: Z48.01 Encounter for change or removal of surgical wound dressing (principal); F41.8 Other specified anxiety disorders; Z72.0 Tobacco use; Z88.1 Allergy status to other antibiotic agents; Z88.5 Allergy status to narcotic agent
CPT/HCPCS: 99281